=== PATIENT | female | born 1940 | race Caucasian/White ===

== ENCOUNTER 2017-05-24 13:55 | Inpatient (IN) | payer OTHER ==
[~2017-05-24] VITALS: Ht 154.9 cm; Wt 65.8 kg
[~2017-05-24 13:55] MED LIST: AMLO10TA PO; CLON1TAB PO; DULO30EC PO; FLOR250 PO; LISI30TA6 PO; LOVA40TA PO; MIRABULK PO; NITR100C7 PO; SYN.05 PO
--- NOTE | 2017-05-24 13:55 | NUR ---
1351--Patient was BIBA ALS and taken to bed 01 via gurney per EMS.
--- NOTE | 2017-05-24 13:55 | NUR ---
1351--RT at bedside with Bipap. Dr. Stafford at bedside to evaluate patient.
[2017-05-24] MEDS ORDERED: NACL 0.9% 500 ML IV SCH (13:56)
[2017-05-24 13:58] VITALS: BP 84/51
[2017-05-24] MEDS ORDERED: ALBUTEROL 0.083% 2.5 MG/3 ML NEBU INH ONE (14:00)
[2017-05-24] MEDS ORDERED: methylPREDNISolone SS 125 MG/2 ML VIAL IVP ONE (14:00)
[2017-05-24] MEDS ORDERED: IPRATROPIUM 0.02% 0.5 MG/2.5 ML NEBU INH ONE (14:00)
--- NOTE | 2017-05-24 14:01 | NUR ---
PATIENT PRESENTS TO ED WITH 77 YO FEMALE BIB EMS FROM HOME FOR ACUTE ONSET OF SOB, AWAKE AND ALERT ON ARRIVAL. DENIES N/V/D; SKIN IS PINK/WARM/DRY; AAOX4 ; LUNGS BL RHONCHI; HR EVEN AND REGULAR; PT DENIES ANY FEVER, CP OR COUGH AT THIS TIME; PATIENT STATES PAIN OF 0/10 AT THIS TIME; VSS; PATIENT POSITIONED FOR COMFORT; HOB ELEVATED; BEDRAILS UP X2; BED DOWN. ER MD MADE AWARE OF PT STATUS.
--- NOTE | 2017-05-24 14:09 | NUR ---
LAB at bedside.
--- NOTE | 2017-05-24 14:22 | NUR ---
XRAY at bedside.
[2017-05-24 14:29] LABS: HEMATOCRIT 50.4 % (36-48); MEAN CORPUSCULAR HEMOGLOBIN 31 pg (27-31); MEAN CORPUSCULAR HGB CONC 32 g/dL (33-37); MEAN CORPUSCULAR VOLUME 97 fL (80-94); PLATELET COUNT (AUTO) 343 K/uL (140-450); RED BLOOD CELL COUNT(AUTO) 5.18 MIL/uL (4.20-5.40); RED CELL DISTRIBUTION WIDTH 14.8 % (11.6-13.7); WHITE BLOOD COUNT (AUTO) 12.5 K/uL (4.8-10.8)
[2017-05-24 14:52] LABS: PROTHROMBIN TIME 11.3 secs (10.8-13.4)
[2017-05-24 14:53] LABS: LYMPHOCYTES % (MANUAL) 40 % (20-46); MONOCYTES % (MANUAL) 3 % (5-12)
[2017-05-24 14:56] LABS: ALBUMIN 3.4 g/dL (3.4-5.0); ANION GAP 20.5 (8-16); ASPARTATE AMINOTRANSFERASE 40 U/L (15-37); CARBON DIOXIDE 20.4 mmol/L (21-32); CHLORIDE 100 mmol/L (98-107); CREATININE 1.4 mg/dL (0.6-1.3); GLUCOSE 218 mg/dL (74-106); SODIUM SERUM 138 mmol/L (136-145); TOTAL BILIRUBIN 0.8 mg/dL (0.0-1.0); UREA NITROGEN, BLOOD 13 mg/dL (7-18)
[2017-05-24 14:57] LABS: POTASSIUM 2.9 mmol/L (3.5-5.1)
[2017-05-24] MEDS ORDERED: MAG SULF 2000 MG/WATER PREMIX 50 ML IV ONE (15:05)
[2017-05-24] MEDS ORDERED: NACL 0.9% 250 ML IV ONE (15:05)
[2017-05-24] MEDS ORDERED: NACL 0.9% 1,000 ML IV ONE (15:05)
[2017-05-24] MEDS ORDERED: KCL 20 MEQ/WATER INJ PREMIX 100 ML IV ONE (15:05)
[2017-05-24] MEDS: NACL 0.9% 1,000 ML IV SCH (15:24)
[2017-05-24] MEDS ORDERED: HYDROcodone/APAP 7.5/325 MG 1 TAB PO PRN (15:25)
[2017-05-24] MEDS ORDERED: ONDANSETRON 4 MG/2 ML VIAL IVP PRN (15:25)
[2017-05-24] MEDS ORDERED: ALBUTEROL SULFATE/IPRATROPIU 3 ML SOL IH PRN (15:30)
[2017-05-24 15:50] LABS: APPEARANCE,URINE CLEAR (CLEAR); BILIRUBIN,URINE NEGATIVE (NEGATIVE); BLOOD, URINE NEGATIVE (NEGATIVE); COLOR,URINE YELLOW (YELLOW); LEUKOCYTE ESTERASE ,URINE NEGATIVE (NEGATIVE); NITRITE, URINE NEGATIVE (NEGATIVE); UGLUCOSE NEGATIVE (NEGATIVE)
[2017-05-24 16:01] LABS: BARBITURATE, URINE NEG. ng/ml (NEG <=200); BENZODIAZEPINE, URINE POS. ng/mL (NEG <=200); CANNABINOID, URINE NEG. ng/mL (NEG <=50); COCAINE, URINE NEG. ng/mL (NEG <=300); OPIATE, URINE POS. ng/mL (NEG <=2000); PHENCYCLIDINE SCREEN,URINE NEG. ng/mL (NEG <=25)
--- NOTE | 2017-05-24 16:30 | NUR ---
2GM/50ML MAGNESIUM PREMIX NOT STARTED GIVEN TO REGULO MORA DUE TO PT ADMITTED WITH ONE IV LINE 20G LT AC WITH POTASSIUM RUNNING
--- NOTE | 2017-05-24 16:30 | NUR ---
Patient will be admitted to care of DR BUENROSTRO. Admited to ICU. Will go to room ICU8. Belongings list completed. Report to REGULO MORA.
[2017-05-24 16:35] LABS: CHOL/HDL RATIO 1.9 (1-4.5); FREE T4 (FREE THYROXINE) 0.77 ng/dL (0.76-1.46); MAGNESIUM 2.5 mg/dL (1.8-2.4); PHOSPHORUS 5.5 mg/dL (2.5-4.9); THYROID STIMULATING HORMONE 3.56 uIU/mL (0.34-3.74)
--- NOTE | 2017-05-24 16:40 | NUR ---
RECEIVED FROM ER VIA [facility], [place]. PT A/O X4. SINUS TACHY. SKIN DRY AND WARM TO TOUCH. SKIN INTACT. PT ON BIPAP 03/24. TOLERATING WELL. NO SOB NOTED. LUNGS SOUND DIMINISHED. LEFT AC 20 G, PATENT AND INTACT. ABDOMEN SOFT AND NON-TENDER TO TOUCH, TOLERABLE. RETAIL MARKETING COORDINATOR PUMP ON THE RIGHT LOWER QUADRANT. GANNON'S CATH IN PLACE DRAINING CLEAR YELLOW URINE IN BAG. DENIES PAIN AT THIS TIME. WILL CONTINUE TO MONITOR.
--- NOTE | 2017-05-24 16:55 | NUR ---
PT IS ON O2 5 LPM/NC. TOLERATING WELL. O2 SAT 96%, RR 16.
[2017-05-24 18:00] VITALS: BP 171/120
[2017-05-24] MEDS: ALBUTEROL SULFATE/IPRATROPIU 3 ML SOL IH SCH (18:28)
--- NOTE | 2017-05-24 18:38 | NUR ---
BIPAP STBY PT ON N/C 4LPM SAO2 96% RR 18, HR 118, BS CLEAR AND DECREASES AT BASES
[2017-05-24] MEDS ORDERED: CALCIUM ACETATE 667 MG TAB PO SCH (18:47)
--- NOTE | 2017-05-24 19:15 | NUR ---
RESIDENT PHYSICIAN DR. WARE MADE AWARE OF HIGH BP OF 168/123 AND HIGH MAGNESIUM OF 2.5. ORDER RECEIVED TO DISCONTINUE MAG SULFATE. WILL FOLLOW UP WITH NEW ORDERS FOR INCREASED BP.
--- NOTE | 2017-05-24 19:20 | NUR ---
REPORT RECEIVED FROM MORNING NURSE, REGULO LARES. PT IS A&OX4. BILATERAL LUNG SOUNDS CLEAR. S1 AND S2 HEARD WITHOUT ANY ABNORMAL FINDINGS. BOWEL SOUNDS HEARD FROM ALL [address] ON MONITOR. BP NOTED 168/123. DR. WARE MADE AWARE AND AT BED SIDE AT THIS TIME. O2 VIA NC @4L/MIN. GENERALIZED WEAKNESS NOTED BUT ABLE TO MOVE ALL EXTREMITIES. IMPLANTED PAIN PUMP PALPATED TO RIGHT LOWER ABDOMEN. PEDAL PULSE PRESENT. GANNON DRAINING LIGHT KADEN COLOR URINE VIA GRAVITY. DENIES ANY PAIN OR DISCOMFORT AT THIS TIME. CALL LIGHT IN REACH AND BED KEPT TO THE LOWEST. BILATERAL S/R UP WITH PADS. WILL CONTINUE TO MONITOR.
[2017-05-24] MEDS ORDERED: LABETALOL 100 MG/20 ML VIAL IV SCH (19:30)
--- NOTE | 2017-05-24 19:32 | NUR ---
REPORT GIVEN TO NIGHT NURSEKALYAN FOR CONTINUITY OF CARE. PT IS STABLE.
[2017-05-24] MEDS ORDERED: LISINOPRIL 20 MG TAB PO SCH (19:40)
[2017-05-24 20:00] VITALS: BP 156/124
[2017-05-24] MEDS: LISINOPRIL 10 MG TAB PO SCH (20:02)
[2017-05-24] MEDS: clonazePAM 0.5 MG TAB PO SCH (20:08)
[2017-05-24] MEDS: LEVOFLOXACIN 750 MG/D5W PREMIX 150 ML IV SCH (20:14)
--- NOTE | 2017-05-24 20:48 | NUR ---
SPUTUM CUP LEFT AT BEDSIDE, PT AWAKE AND ALERT AND STATED SHE DOES NOT HAVE A COUGH OR PHLEGM TO PRODUCE
--- NOTE | 2017-05-24 20:50 | NUR ---
PT BP 64/39. JP=724. 95%. ON LEVOPHED 3 MCG/MIN. TITRATED TO 5 MCG/MIN. WILL CONTINUE TO MONITOR. Addendum: 05/24/17 at 2140 by Charlene Stout RN CHARTED ON WRONG PATIENT. DELETE THIS CHARTING.
--- NOTE | 2017-05-24 20:57 | NUR ---
BP 108/58. OR=615. 97%. WILL CONTINUE WITH LEVOPHED 5 MCG/MIN. NOTED INCREASED CRACKLES AND SUCTIONED 10ML OF TUBE FEEDING CONTENT FROM THE MOUTH. STOPPED FEEDING IMMEDIATELY. 5ML RESIDUAL NOTED. NOTIFIED. DR. WARE ABOUT PT'S CONDITION AND ORDERED TO CONTINUE TO HOLD THE TUBE FEEDING FOR NOW AND CONTINUE WITH AMIODORONE DRIP AND LEVOPHED DRIP. Addendum: 05/24/17 at 2140 by Charlene Stout RN CHARTED ON WRONG PATIENT. DELETE THIS CHARTING.
[2017-05-24] MEDS: DOCUSATE SODIUM 100 MG GELCAP PO SCH (21:28)
[2017-05-24] MEDS ORDERED: CLINDAMYCIN 600 MG/4 ML VIAL ONE (21:35)
--- NOTE | 2017-05-24 21:37 | NUR ---
SERVICE DESK DIRECTOR AT BED SIDE AT THIS TIME.
--- NOTE | 2017-05-24 21:44 | NUR ---
PT REFUSED ULTRASOUND TO ABD AND LOWER LEGS X3. BENEFITS AND RISKS EXPLAINED. NOTIFIED DR. WARE AND ORDERED TO TRY AGAIN IN AM. NOTED AND WILL CARRY OUT. PT MADE AWARE.
--- NOTE | 2017-05-24 21:47 | NUR ---
NO MORE D5 SOLUTION IN THE HOSPITAL AT THIS TIME DUE TO SHORTAGE. CALLED AND SPOKE TO PAINTINGS CONSERVATOR PHARMACIST, IVETTE AND SHE SAID IT IS OK TO MIX IT WITH NS. DR. PIERRE MADE AWARE.
[2017-05-24] MEDS: CLINDAMYCIN 600 MG in DEXTROSE 5% 50 ML IV SCH (21:52)
[2017-05-24 22:00] VITALS: BP 130/94
[2017-05-24 23:55] LABS: ANION GAP 11.8 (8-16); CARBON DIOXIDE 23.1 mmol/L (21-32); CHLORIDE 106 mmol/L (98-107); CREATININE 1.2 mg/dL (0.6-1.3); GLUCOSE 195 mg/dL (74-106); POTASSIUM 3.9 mmol/L (3.5-5.1); SODIUM SERUM 137 mmol/L (136-145); UREA NITROGEN, BLOOD 16 mg/dL (7-18)
[2017-05-25] VITALS (12 sets, daily range): BP systolic 111–163; BP diastolic 58–107
--- NOTE | 2017-05-25 01:15 | NUR ---
PT WAS ASSISTED WITH BED BLACK FOR BM AND HAD MODERATE AMOUNT OF SOFT BM. ASSISTED WITH HYGIENE AND TOLERATED WELL.
[2017-05-25] MEDS: NACL 0.9% 1,000 ML IV SCH ×2 (01:24→06:54)
[2017-05-25] MEDS: ACETAMINOPHEN 325 MG TAB PO PRN (01:57)
[2017-05-25] MEDS ORDERED: CLINDAMYCIN 600 MG/4 ML VIAL ONE (02:25)
--- NOTE | 2017-05-25 03:00 | NUR ---
ASSISTED WITH BED BLACK AND HAD SMALL AMOUNT OF SOFT BM. ASSISTED WITH HYGIENE. TOLERATED WELL.
[2017-05-25] MEDS: CLINDAMYCIN 600 MG in DEXTROSE 5% 50 ML IV SCH ×3 (04:19→21:50)
--- NOTE | 2017-05-25 04:25 | NUR ---
PT HAD MODERATE AMOUNT OF SOFT BM. ASSISTED WITH HYGIENE. TOLERATED WELL.
[2017-05-25 05:28] LABS: HEMOGLOBIN 13.1 g/dL (12.0-16.0); MEAN CORPUSCULAR HEMOGLOBIN 31 pg (27-31); MEAN CORPUSCULAR HGB CONC 32 g/dL (33-37); MEAN CORPUSCULAR VOLUME 98 fL (80-94); PLATELET COUNT (AUTO) 232 K/uL (140-450); RED BLOOD CELL COUNT(AUTO) 4.19 MIL/uL (4.20-5.40)
[2017-05-25 05:53] LABS: ANION GAP 15.4 (8-16); CARBON DIOXIDE 22.1 mmol/L (21-32); CHLORIDE 106 mmol/L (98-107); CREATININE 1.3 mg/dL (0.6-1.3); GLUCOSE 186 mg/dL (74-106); POTASSIUM 4.5 mmol/L (3.5-5.1); SODIUM SERUM 139 mmol/L (136-145); UREA NITROGEN, BLOOD 19 mg/dL (7-18)
[2017-05-25 05:58] LABS: MAGNESIUM 1.7 mg/dL (1.8-2.4); PHOSPHORUS 4.5 mg/dL (2.5-4.9)
[2017-05-25] MEDS: LEVOTHYROXINE 0.05 MG TAB PO SCH (06:53)
[2017-05-25 06:57] LABS: LYMPHOCYTES % (MANUAL) 4 % (20-46); MONOCYTES % (MANUAL) 4 % (5-12)
[2017-05-25] MEDS ORDERED: hePARIN / DEXT 5% PREMIX 250 ML IV SCH ×2 (07:15→07:30)
[2017-05-25] MEDS ORDERED: HEPARIN PER PHARMACY MC PRN (07:15)
[2017-05-25] MEDS: ALBUTEROL SULFATE/IPRATROPIU 3 ML SOL IH SCH ×3 (07:16→20:00)
--- NOTE | 2017-05-25 07:17 | NUR ---
REPORT GIVEN TO MORNING NURSEABDULAZIZ FOR CONTINUITY OF CARE. VS STABLE AT THIS TIME. ALL SAFETY PRECAUTIONS ARE IN PLACE.
--- NOTE | 2017-05-25 07:20 | NUR ---
RECEIVED REPORT FROM NOC SHIFT RN. PT LYING IN BED AWAKE. SR ON MONITOR. NO SOB, NO ACUTE DISTRESS NOTED. PT ON NC AT 4 LTR/MIN. SKIN DRY AND WARM TO TOUCH. PUPILS REACTIVE. LEFT AC 20 G INTACT. SKIN INTACT. LUNGS SOUND DIMINISHED ON AUSCULTATION. ABDOMEN SOFT AND NON-TENDER. BOWEL SOUND PRESENT. GANNON'S CATH IN PLACE DRAINING YELLOW URINE. SCDS ON BLE. WILL CONTINUE TO MONITOR.
--- NOTE | 2017-05-25 07:25 | NUR ---
BP WAS 180/118. DR LARIOS MADE AWARE. WILL FOLLOW UP ON ORDER.
[2017-05-25] MEDS ORDERED: MAG SULF 2000 MG/WATER PREMIX 50 ML IV SCH (07:30)
--- NOTE | 2017-05-25 07:31 | NUR ---
BP 163/96 MM OF HG. PT ON CONTINUOUS MONITORING
--- NOTE | 2017-05-25 07:45 | NUR ---
DR. CHESTER AND RESIDENT GROUP IN TO SEE PT. WILL FOLLOW UP ON ORDER.
[2017-05-25] MEDS ORDERED: ENALAPRILAT 2.5 MG/2 ML VIAL IVP PRN (07:55)
[2017-05-25] MEDS ORDERED: NITROGLYCERIN 0.4 MG TAB SL PRN (07:55)
[2017-05-25] MEDS: CALCIUM ACETATE 667 MG TAB PO SCH (08:36)
[2017-05-25] MEDS: DOCUSATE SODIUM 100 MG GELCAP PO SCH ×2 (08:36→21:46)
[2017-05-25] MEDS: LACTOBACILLUS RHAMNOSUS GG 1 EACH CAP PO SCH ×3 (08:36→17:11)
[2017-05-25] MEDS: DULoxetine 30 MG CAPDR PO SCH (08:37)
[2017-05-25] MEDS: clonazePAM 0.5 MG TAB PO SCH ×4 (08:38→21:47)
[2017-05-25] MEDS: amLODIPine 5 MG TAB PO SCH (08:40)
--- NOTE | 2017-05-25 08:40 | NUR ---
PATIENT HAS BEEN SCREENED AND CATEGORIZED HIGH NUTRITION RISK. PATIENT WILL BE SEEN WITHIN 1-2 DAYS OF ADMISSION. 05/25/17-05/26/[address]
[2017-05-25] MEDS: ATORVASTATIN 20 MG TAB PO SCH (08:44)
--- NOTE | 2017-05-25 09:42 | NUR ---
BP 164/82. O2 SAT 95% HR 98. AT BEDSIDE. NO S/S RESPIRATORY DISTRESS NOTED. WILL CONTINUE TO MONITOR.
[2017-05-25] MEDS ORDERED: DEXTROSE 50% 50 ML SYR IVP PRN (11:10)
[2017-05-25] MEDS: BLOOD GLUCOSE MONITORING 1 DEV DEV FS SCH ×3 (11:30→21:45)
[2017-05-25 11:36] LABS: PROTHROMBIN TIME 11.3 secs (10.8-13.4)
--- NOTE | 2017-05-25 12:35 | NUR ---
PT HAD MODERATE AMOUNT OF SOFT BROWNISH BM, CLEANED PT, LINEN CHANGED, PT'S AT BEDSIDE.
--- NOTE | 2017-05-25 15:07 | NUR ---
PT LEFT ICU AT [address], BACK TO ICU AT 1507 . NO S/S OF RESPIRATORY DISTRESS NOTED, SAFETY MAINTAINED.
--- NOTE | 2017-05-25 15:30 | NUR ---
PT HAD SMALL AMOUNT OF SOFT BM, CLEANED PT. PT'S SISTER PRESENT AT BEDSIDE.
--- NOTE | 2017-05-25 16:00 | NUR ---
FEED PT JELLO ONE CUP, PT TOLERATED WELL.
--- NOTE | 2017-05-25 18:00 | NUR ---
PT HAD MODERATE AMOUNT OF SOFT BROWNISH BM, CLEANED PT, PT'S AT BEDSIDE.
--- NOTE | 2017-05-25 19:20 | NUR ---
RECEIVED A REPORT FROM MORNING NURSE, REGULO HORVATH. PT IS ALERT AND VERBAL. ABLE TO FOLLOW COMMANDS. BILATERAL LUNGS SOUND DIMINISHED. S1 AND S2 HEARD WITHOUT ABNORMAL HEART SOUND. ON 4L O2 VIA NC. IV SITES TO LEFT AC AND RIGHT WRIST PATENT AND ASYMPTOMATIC. BILATERAL SCD IN PLACE. ACTIVE BOWEL SOUNDS HEARD FROM ALL QUAD. ABD SOFT AND NOT DISTENDED. IMPLANTED PAIN PUMP PALPATED ON THE RIGHT LOWER ABD. DENIES ANY PAIN OR DISCOMFORT. ON CONTINUOUS CARDIAC MONITORING. CALL LIGHT IN REACH. BED KEPT TO THE LOWEST POSITION. HOB ELEVATED TO 30 DEGREES. WILL CONTINUE TO MONITOR.
--- NOTE | 2017-05-25 19:30 | NUR ---
REPORT GIVEN TO NOC SHIFT RN FOR CONTINUITY OF CARE. PT SLEEPING IN BED, NO CHANGE IN LOC.
--- NOTE | 2017-05-25 20:10 | NUR ---
1999 unable to scan duomed medication pressed administered on emar.gave hhntx treatment with duomed
--- NOTE | 2017-05-25 20:15 | NUR ---
PT ON 4LNC SATTING 88%. REPLACED NC WITH OXYMIZER AT 6L. SATS 95%
[2017-05-25] MEDS: methylPREDNISolone SS 40 MG/ML VIAL IVP SCH (21:45)
[2017-05-25] MEDS: LISINOPRIL 10 MG TAB PO SCH (21:46)
[2017-05-25] MEDS: FAMOTIDINE 20 MG TAB PO SCH (21:48)
--- NOTE | 2017-05-25 22:46 | NUR ---
NOTIFIED DR. WARE ABOUT PT'S HR BEING 110'S - 120'S AND ONE TIME 134 SINCE START OF THE SHIFT. PT DENIES ANY PAIN OR DISCOMFORT. WILL FOLLOW UP WITH ANY ORDERS.
[2017-05-26] VITALS (12 sets, daily range): BP systolic 121–159; BP diastolic 77–97
--- NOTE | 2017-05-26 01:26 | NUR ---
PT ASLEEP AT THIS TIME. CONTINUE TO MONITOR UNDER CONTINUOUS POWER OPERATOR. ALL SAFETY PRECAUTIONS ARE IN PLACE. WILL CONTINUE TO MONITOR.
[2017-05-26] MEDS: NACL 0.9% 1,000 ML IV SCH ×2 (01:29→16:06)
--- NOTE | 2017-05-26 03:34 | NUR ---
PT ASLEEP. CONTINUES TO BE MONITORED WITH CONTINUOUS CARDIAC MONITORING. NO ACUTE DISTRESS NOTED. NO S/SX OF PAIN OF DISCOMFORT. ALL SAFETY PRECAUTIONS ARE IN PLACE. WILL CONTINUE TO MONITOR.
[2017-05-26] MEDS: CLINDAMYCIN 600 MG in DEXTROSE 5% 50 ML IV SCH ×3 (04:42→21:15)
[2017-05-26] MEDS: methylPREDNISolone SS 40 MG/ML VIAL IVP SCH ×3 (05:00→21:15)
--- NOTE | 2017-05-26 05:03 | NUR ---
CLINICAL OUTCOMES MANAGER AT BED SIDE AT THIS TIME.
[2017-05-26 05:22] LABS: HEMATOCRIT 37.2 % (36-48); HEMOGLOBIN 12.2 g/dL (12.0-16.0); MEAN CORPUSCULAR HEMOGLOBIN 32 pg (27-31); MEAN CORPUSCULAR HGB CONC 33 g/dL (33-37); MEAN CORPUSCULAR VOLUME 97 fL (80-94); PLATELET COUNT (AUTO) 198 K/uL (140-450); RED BLOOD CELL COUNT(AUTO) 3.84 MIL/uL (4.20-5.40); RED CELL DISTRIBUTION WIDTH 14.2 % (11.6-13.7)
--- NOTE | 2017-05-26 05:55 | NUR ---
DR. LARIOS AT BED SIDE. UPDATED PT'S CONDITION. WILL FOLLOW UP WITH ANY ORDERS.
[2017-05-26 06:14] LABS: ANION GAP 12.8 (8-16); CARBON DIOXIDE 24.4 mmol/L (21-32); CHLORIDE 103 mmol/L (98-107); CREATININE 0.9 mg/dL (0.6-1.3); GLUCOSE 149 mg/dL (74-106); POTASSIUM 3.2 mmol/L (3.5-5.1); SODIUM SERUM 137 mmol/L (136-145); UREA NITROGEN, BLOOD 16 mg/dL (7-18)
[2017-05-26 06:27] LABS: MAGNESIUM 1.9 mg/dL (1.8-2.4); PHOSPHORUS 3.7 mg/dL (2.5-4.9)
[2017-05-26 06:29] LABS: LYMPHOCYTES % (MANUAL) 3 % (20-46); MONOCYTES % (MANUAL) 2 % (5-12)
[2017-05-26] MEDS: LEVOTHYROXINE 0.05 MG TAB PO SCH (06:36)
[2017-05-26] MEDS: BLOOD GLUCOSE MONITORING 1 DEV DEV FS SCH ×4 (06:38→21:15)
[2017-05-26] MEDS: ALBUTEROL SULFATE/IPRATROPIU 3 ML SOL IH SCH ×3 (06:50→18:54)
--- NOTE | 2017-05-26 07:11 | NUR ---
REPORT GIVEN TO MORNING NURSENISA RN FOR CONTINUITY OF CARE. VS STABLE AT THIS TIME. ALL SAFETY PRECAUTIONS ARE IN PLACE.
[2017-05-26] MEDS ORDERED: POTASSIUM CHLORIDE 40 MEQ, LIDOCAINE 1% 25 MG in NACL 0.9% 250 ML IV SCH (07:29)
--- NOTE | 2017-05-26 07:30 | NUR ---
RECEIVED PATIENT ON BED.INITIAL ASSESSMENT DONE TO PATIENT .PT ON 6 LITERS OXYMIZER .LEFT AC 20 GAUGE PIV WITH 0.9 NS AT 70 ML/H.PT DENIES PAIN.RIGHT FOREARM SALINE LOCK PATENT AND INTACT.NO SIGNS OF INFILTRATION.ST ON THE MONITOR.WILL MONITOR.
[2017-05-26] MEDS: ATORVASTATIN 20 MG TAB PO SCH (08:43)
[2017-05-26] MEDS: DOCUSATE SODIUM 100 MG GELCAP PO SCH ×2 (08:43→21:15)
[2017-05-26] MEDS: clonazePAM 0.5 MG TAB PO SCH ×4 (08:44→21:12)
[2017-05-26] MEDS: DULoxetine 30 MG CAPDR PO SCH (08:44)
[2017-05-26] MEDS: CALCIUM ACETATE 667 MG TAB PO SCH (08:45)
[2017-05-26] MEDS: FAMOTIDINE 20 MG TAB PO SCH ×2 (08:45→21:15)
[2017-05-26] MEDS: amLODIPine 5 MG TAB PO SCH (08:45)
[2017-05-26] MEDS: LACTOBACILLUS RHAMNOSUS GG 1 EACH CAP PO SCH ×3 (08:54→17:35)
--- NOTE | 2017-05-26 09:45 | NUR ---
HOSPITAL SHUT DOWN O2 X 5MINUTES PT PLACED ON 02 VIA E CYLINDER AND THEN PLACED BACK ON HOSPITAL 02 NO ILL EFFECTS NOTED
[2017-05-26] MEDS: INSULIN LISPRO SLIDING SCALE 100 UNITS/ML VIAL SUBQ PRN ×2 (12:32→21:14)
--- NOTE | 2017-05-26 12:56 | NUR ---
05/26/17 RD INITIAL ASSESSMENT COMPLETED PLEASE REFER TO NUTRITION ASSESSMENT UNDER CARE ACTIVITY FOR ESTIMATED NUTRITIONAL NEEDS. 1. CONTINUE SOFT DIET TOLERATED PER MD 2. ENCOURAGE INCREASED PO INTAKES -PT WITH POOR PO INTAKE (ONLY MEETING 20% OF ESTIMATED NEEDS) 3. RECOMMEND BOOST TID TO AID IN INCREASED KCAL AND PROTEIN CONSUMPTION 4. RD TO FOLLOW-UP 3-5 DAYS, MODERATE RISK IMELDA CROCKETT, RD
--- NOTE | 2017-05-26 15:48 | NUR ---
AT THE BEDSIDE.PT IS NOT IN ANY CARDIORESPIRATORY DISTRESS.PT IS TOLERATING VENT AND GTUBE FEEDING.
--- NOTE | 2017-05-26 19:20 | NUR ---
REPORT GIVEN TO AMANDA MARTIN FOR CONTINUITY OF CARE
--- NOTE | 2017-05-26 19:21 | NUR ---
RECEIVED REPORT FROM REGULO WRIGHT. AT BEDSIDE, PT AOX1, CONFUSED, ABLE TO FOLLOW COMMANDS SOMETIMES, NO S/S OF DISTRESS, DISMINISHED LUNG SOUNDS, ON OXIMIZER WITH O2 AT 6L/MIN, DENIES CHEST PAIN, ST ON AUTO BODY SERVICE MECHANIC. SOFT ABDOMEN WITH HYPOACTIVE BOWEL SOUNDS, PERIPHERAL LINE TO LEFT AC, PATENT AND SL, TO RIGHT FOREARM 22GA, RUNNING NS AT 70 ML/HR, F/C IN PLACE DRAINING CLEAR YELLOW URINE VIA GRAVITY. ABLE TO MOVE ALL EXTREMITIES, AFEBRILE, SKIN IS INTACT, WARM AND DRY TO TOUCH. VSS, DENIES PAIN, SCD'S ON BLE. HOB ELEVATED 30 DEGREES, SAFETY MEASURES MAINTAINED, WILL CONTINUE TO MONITOR.
[2017-05-26] MEDS: LEVOFLOXACIN 750 MG/D5W PREMIX 150 ML IV SCH (19:33)
--- NOTE | 2017-05-26 20:15 | NUR ---
PT IS CONFUSED, TRYING TO GET UP FROM BED, PULLED OUT THE IV SITE TO LEFT AC, SMALL AMOUNT OF BLEEDING NOTED, REORIENTATED PT, PT CALM DOWN, WILL CONTINUE TO MONITOR.
--- NOTE | 2017-05-26 20:40 | NUR ---
PT IS SCREAMING, AGITATED, CALLED PT'S , CAME IN AND PT CALM DOWN.
[2017-05-26] MEDS: LISINOPRIL 10 MG TAB PO SCH (21:14)
--- NOTE | 2017-05-26 22:00 | NUR ---
NO S/S OF DISTRESS, VSS, POSITION CHANGED FOR OFF LOAD PRESSURE.
[2017-05-27] VITALS (8 sets, daily range): BP systolic 97–157; BP diastolic 57–95
--- NOTE | 2017-05-27 | NUR ---
PT IS RESTING IN BED, NO CHANGE OF CONDITION AT THIS TIME, VSS, POSITION CHANGED FOR OFF LOAD PRESSURE.
--- NOTE | 2017-05-27 02:00 | NUR ---
PT IS AWAKE, STATED COULD NOT SLEEP, REQUESTS SLEEPING PILL, DR. WARE MADE AWARE.
[2017-05-27] MEDS ORDERED: clonazePAM 0.5 MG TAB PO PRN (02:55)
--- NOTE | 2017-05-27 04:00 | NUR ---
AM CARE PROVIDED, GANNON CATHETER CARE PROVIDE, POSITION CHANGED FOR OFF LOAD PRESSURE. VSS
[2017-05-27] MEDS: CLINDAMYCIN 600 MG in DEXTROSE 5% 50 ML IV SCH ×3 (04:55→20:33)
[2017-05-27] MEDS: methylPREDNISolone SS 40 MG/ML VIAL IVP SCH ×3 (04:55→20:44)
--- NOTE | 2017-05-27 05:20 | NUR ---
PT IS STILL AWAKE, CONFUSED, PLAYING WITH TUBES, TRYING TO GET UP FROM BED, CLONAZEPAM GIVEN EARLY, DID NOT WORK, DR. WARE MADE AWARE. REORIENTED PT, PT CALM DOWN.
[2017-05-27 05:23] LABS: HEMATOCRIT 32.2 % (36-48); HEMOGLOBIN 10.5 g/dL (12.0-16.0); MEAN CORPUSCULAR HEMOGLOBIN 31 pg (27-31); MEAN CORPUSCULAR HGB CONC 33 g/dL (33-37); MEAN CORPUSCULAR VOLUME 95 fL (80-94); PLATELET COUNT (AUTO) 205 K/uL (140-450); RED BLOOD CELL COUNT(AUTO) 3.38 MIL/uL (4.20-5.40); RED CELL DISTRIBUTION WIDTH 14.1 % (11.6-13.7); WHITE BLOOD COUNT (AUTO) 15.5 K/uL (4.8-10.8)
--- NOTE | 2017-05-27 06:00 | NUR ---
PT IS AGITATED, TRYING TO GET UP THE BED, STATED, " I NEED MY CLOTH," VERY CONFUSED, DR. LARIOS MADE AWARE. CALLED PT'S , NO RESPOND, LEFT MESSAGE.
[2017-05-27] MEDS: LEVOTHYROXINE 0.05 MG TAB PO SCH (06:25)
[2017-05-27] MEDS: NACL 0.9% 1,000 ML IV SCH ×2 (06:25→20:25)
[2017-05-27 06:36] LABS: ANION GAP 11.8 (8-16); CHLORIDE 104 mmol/L (98-107); CREATININE 0.9 mg/dL (0.6-1.3); GLUCOSE 125 mg/dL (74-106); SODIUM SERUM 138 mmol/L (136-145); UREA NITROGEN, BLOOD 19 mg/dL (7-18)
[2017-05-27] MEDS: BLOOD GLUCOSE MONITORING 1 DEV DEV FS SCH ×4 (06:46→20:41)
[2017-05-27 06:49] LABS: MAGNESIUM 1.5 mg/dL (1.8-2.4); PHOSPHORUS 2.5 mg/dL (2.5-4.9)
[2017-05-27 06:57] LABS: POTASSIUM 2.8 mmol/L (3.5-5.1)
[2017-05-27 06:59] LABS: LYMPHOCYTES % (MANUAL) 6 % (20-46)
[2017-05-27 07:00] LABS: MONOCYTES % (MANUAL) 6 % (5-12)
[2017-05-27] MEDS: ALBUTEROL SULFATE/IPRATROPIU 3 ML SOL IH SCH ×3 (07:01→19:09)
--- NOTE | 2017-05-27 07:05 | NUR ---
REPORT GIVEN TO REGULO CINTRON AT BEDSIDE FOR CONTINUE OF CARE, PT IS STILL TRYING TO GET UP THE BED.
--- NOTE | 2017-05-27 07:06 | NUR ---
RECEIVED PT ON 6L OXYMIZER, SPO2 93%. PT IS NOT SOB AND NOT IN RESPIRATORY DISTRESS AT THIS TIME. WILL CONTINUE TO MONITOR.
--- NOTE | 2017-05-27 07:15 | NUR ---
RECEIVED REPORT FROM AMANDA RAJPUT. SHE IS AWAKE AND ALERT CONFUSE , TRY TO GET OUT OF BED AND PULL OUT HER O2 . SHE HAS SOME BRUIST ON HER ARMS , SKIN IS INTACT . O2 6L/OXIMIZER O2SAT 95% IV ON RT FORARM, THE SITE IS DRY AND INTACT. ABDOMEN SOFT B/S IS ACTIVE. SMALL AMT DARK GREEN BM. GANNON CATH. DRAIN CLEAR YELLOW URINE.
[2017-05-27] MEDS ORDERED: POTASSIUM CHLORIDE 10 MEQ TABER PO SCH (07:55)
[2017-05-27] MEDS: DULoxetine 30 MG CAPDR PO SCH (08:27)
[2017-05-27] MEDS: ATORVASTATIN 20 MG TAB PO SCH (08:28)
[2017-05-27] MEDS: amLODIPine 5 MG TAB PO SCH (08:28)
[2017-05-27] MEDS: CALCIUM ACETATE 667 MG TAB PO SCH (08:28)
[2017-05-27] MEDS: LACTOBACILLUS RHAMNOSUS GG 1 EACH CAP PO SCH ×3 (08:29→16:38)
[2017-05-27] MEDS ORDERED: POTASSIUM CHLORIDE 40 MEQ, LIDOCAINE 1% 25 MG in NACL 0.9% 250 ML IV SCH (08:30)
[2017-05-27] MEDS: clonazePAM 0.5 MG TAB PO SCH ×4 (08:48→20:46)
[2017-05-27] MEDS: FAMOTIDINE 20 MG TAB PO SCH ×2 (08:49→20:48)
[2017-05-27] MEDS: DOCUSATE SODIUM 100 MG GELCAP PO SCH ×2 (08:49→20:44)
--- NOTE | 2017-05-27 09:30 | NUR ---
CALLED GIVE REPORT TO HOWARD RAJPUT.
--- NOTE | 2017-05-27 10:30 | NUR ---
TRANSFER TO 107 B IN BED AT BEDSIDE CONDITION STABLE WHEN TRANSFER.
--- NOTE | 2017-05-27 10:40 | NUR ---
RECEIVED PT FRO ICU ASSISTED BY ICU NURSE PER WHEELCHAIR. PT AWAKE. ALERT,ORIENTEDX1 WITH CONFUSION. WITH YOJANA. NO SOB NOTED. ON OXYMIZER AT 5LPM. DENIES ANY PAIN OR DISCOMFORT AT THIS TIME. NO SIGNS AND SYMPTOMS OF ACUTE DISTRESS NOTED. SAFETY PRECAUTION IN PLACE. CALL LIGHT WITHIN REACH. PT AMBULATORY WITH ASSIST PER . GANNON CATHETER IN PLACE, DRAINING CLEAR YELLOW URINE.
--- NOTE | 2017-05-27 11:30 | NUR ---
LEFT. PT BECAME VERY AGITATED AND CONFUSED WANTED TO GET OUT OF BED. TRYING TO REMOVE GANNON CATHETER AND IV LINE. REORIENTATION DONE AND NOT EFFECTIVE. DR. LARIOS MADE AWARE WITH ORDERS MADE AND CARRIED OUT.
--- NOTE | 2017-05-27 11:56 | NUR ---
PT WONT ALLOW BREATHING TX TO CONTINUE. NURSE LUIS DANIEL AWARE. PT IS VERY CONFUSED AT THIS TIME. PT NOT IN RESPIRATORY DISTRESS OR SOB.
[2017-05-27] MEDS: HALOPERIDOL IM 5 MG/ML VIAL IM PRN ×2 (12:12→17:48)
[2017-05-27 12:47] LABS: ANION GAP 10.4 (8-16); CARBON DIOXIDE 25.4 mmol/L (21-32); CHLORIDE 106 mmol/L (98-107); CREATININE 1.1 mg/dL (0.6-1.3); GLUCOSE 136 mg/dL (74-106); POTASSIUM 3.8 mmol/L (3.5-5.1); SODIUM SERUM 138 mmol/L (136-145); UREA NITROGEN, BLOOD 20 mg/dL (7-18)
--- NOTE | 2017-05-27 13:19 | NUR ---
DUE KLONOPIN NOTE GIVEN DUE TO PT FELL ASLEEP. NO SIGNS AND SYMPTOMS OF ACUTE DISTRESS OR DISCOMFORT NOTED. MAINTAINED ON 5LPM OXYMIZER. Addendum: 05/27/17 at 1716 by Rebecca Perez RN DUE KLONOPIN NOT GIVEN DUE TO PT FELL ASLEEP. NO SIGNS AND SYMPTOMS OF ACUTE DISTRESS OR DISCOMFORT NOTED. MAINTAINED ON 5LPM OXYMIZER.
--- NOTE | 2017-05-27 17:00 | NUR ---
DUE MEDS GIVEN TAKEN P.O. TOLERATED WELL. AT BEDSIDE. PT AWAKE, ALERT, WITH CONFUSION. REORIENTATION DONE NEEDED.
--- NOTE | 2017-05-27 17:50 | NUR ---
PT'S WENT HOME. PT STARTED TO GET AGITATED. TRYING TO REMOVE IV LINE AND OXYGEN. REORIENTATION DONE BUT NOT EFFECTIVE. WRAPPED IV LINE WITH KERLIX, SECURED WITH TAPE. MEDICATED PRN HALDOL PRN IM.
--- NOTE | 2017-05-27 18:22 | NUR ---
PT KEPT CLEAN, DRY AND COMFORTABLE, NEEDS ATTENDED. BED ALARM ON. WILL ENDORSE TO NEXT SHIFT. PT ON STABLE CONDITION. FOR CONTINUITY OF CARE.
--- NOTE | 2017-05-27 18:43 | NUR ---
PT STARTING TO FALL ASLEEP. PT COOPERATIVE. REORIENTATION EFFECTIVE.
--- NOTE | 2017-05-27 19:15 | NUR ---
RECEIVED REPORT FROM AM NURSE. PT RESTING IN BED, AOX2, BEDREST, ABLE TO VERBALIZE NEEDS. PT DENIES PAIN, SOB OR S/S OF ACUTE DISTRESS. PT CONFUSED AND FORGETFUL AT TIMES, PT REORIENTED, WILL CONTINUE WITH CONSTANT REINFORCEMENT. CAMPUS RECRUITING INTERN IN PLACE. SPO2 91% ON O2 5L OXYMIZER, RR 18 EVEN AND UNLABORED, HR 116. PT SEEN REMOVING O2 OXYMIZER, ASSISTED PT TO PUT BACK ON, PT EDUCATED, WILL MONITOR PT COMPLIANCE. IV ACCESS ASYMPTOMATIC, PATENT AND INTACT. IVF INFUSING WELL. DISCUSSED AND REVIEWED PLAN OF CARE WITH PT, WILL REINFORCE THROUGHOUT SHIFT. ALL NEEDS MET. BED ALARM AND SAFETY MEASURES ENSURED. CALL LIGHT WITHIN REACH. WILL CONTINUE TO MONITOR.
[2017-05-27] MEDS: LISINOPRIL 10 MG TAB PO SCH (20:47)
--- NOTE | 2017-05-27 20:55 | NUR ---
PT TRYING TO GET OUT OF BED, PT REORIENTED, WILL CONTINUE WITH CONSTANT REINFORCEMENT. PT ASSISTED BACK TO BED, ADMINISTERED DUE MEDS WITH EDUCATION. PT STATED "OK", ABLE TO SWALLOW MEDS WELL. ASSISTED PT TO TURN AND REPOSITION SELF, OFFLOADED PRESSURE AREAS. PT TOLERATED WELL. ALL NEEDS MET. SAFETY MEASURES ENSURED. CALL LIGHT WITHIN REACH. WILL CONTINUE TO MONITOR.
[2017-05-28] VITALS: BP 118/78
--- NOTE | 2017-05-28 00:01 | NUR ---
PT SLEEPING COMFORTABLY, AROUSABLE TO NAME, NO S/S OF ACUTE DISTRESS. PT SEEN REMOVING O2 OXYMIZER, ASSISTED PT TO PUT BACK ON, SPO2 95% ON O2 5L OXYMIZER, PT EDUCATED, WILL MONITOR PT COMPLIANCE. ASSISTED PT TO TURN AND REPOSITION SELF, PT TOLERATED WELL. ALL NEEDS MET. IVF INFUSING WELL. BED ALARM AND SAFETY MEASURES ENSURED. CALL LIGHT WITHIN REACH. WILL CONTINUE TO MONITOR.
[2017-05-28 04:00] VITALS: BP 121/79
[2017-05-28] MEDS: methylPREDNISolone SS 40 MG/ML VIAL IVP SCH ×3 (04:00→21:24)
[2017-05-28] MEDS: CLINDAMYCIN 600 MG in DEXTROSE 5% 50 ML IV SCH ×3 (04:00→22:30)
--- NOTE | 2017-05-28 04:05 | NUR ---
PT SLEEPING COMFORTABLY, AROUSABLE TO NAME, NO S/S OF ACUTE DISTRESS. SPO2 96% ON O2 5L OXYMIZER, RR 16 EVEN AND UNLABORED. ASSISTED PT TO TURN AND REPOSITION SELF, PT TOLERATED WELL. ADMINISTERED DUE MEDS WITH EDUCATION. PT STATED "OK." ALL NEEDS MET. IVPB INFUSING WELL. BED ALARM AND SAFETY MEASURES ENSURED. CALL LIGHT WITHIN REACH. WILL CONTINUE TO MONITOR.
[2017-05-28] MEDS: LEVOTHYROXINE 0.05 MG TAB PO SCH (05:56)
[2017-05-28] MEDS: BLOOD GLUCOSE MONITORING 1 DEV DEV FS SCH ×4 (06:02→21:33)
--- NOTE | 2017-05-28 06:05 | NUR ---
PT SLEEPING COMFORTABLY, AROUSABLE TO NAME, ADMINISTERED DUE MED SYNTHROID WITH EDUCATION. PT STATED "OK," ABLE TO SWALLOW MED WELL. ALL NEEDS MET. IVF INFUSING WELL. SAFETY MEASURES ENSURED. CALL LIGHT WITHIN REACH. WILL CONTINUE TO MONITOR. BLOOD GLUCOSE 122, NO INSULIN COVERAGE NEEDED. TRAILER CHIEF AT BEDSIDE, ATTEMPTED TO DRAW BLOOD WORK, UNSUCCESSFUL AFTER 1 ATTEMPT DUE TO PT SWINGING ARMS. PT REFUSED FURTHER ATTEMPTS, TRAILER CHIEF STATED HE WILL ENDORSE.
--- NOTE | 2017-05-28 06:41 | NUR ---
DR NICK AT BEDSIDE TO DISCUSS PT CONDITION AND PLAN OF CARE. INSTRUCTED TO REMOVE GANNON CATHETER AT THIS TIME FOR BLADDER TRAINING. GANNON CATHETER DISCONTINUED, PT TOLERATED WELL. PT ATTEMPTING TO GET OUT OF BED, PT REORIENTED, WILL CONTINUE TO MONITOR.
[2017-05-28 07:10] LABS: HEMATOCRIT 33.6 % (36-48); HEMOGLOBIN 11.1 g/dL (12.0-16.0); MEAN CORPUSCULAR HEMOGLOBIN 31 pg (27-31); MEAN CORPUSCULAR HGB CONC 33 g/dL (33-37); MEAN CORPUSCULAR VOLUME 95 fL (80-94); PLATELET COUNT (AUTO) 209 K/uL (140-450); RED BLOOD CELL COUNT(AUTO) 3.52 MIL/uL (4.20-5.40); RED CELL DISTRIBUTION WIDTH 14.6 % (11.6-13.7); WHITE BLOOD COUNT (AUTO) 16.4 K/uL (4.8-10.8)
[2017-05-28] MEDS: ALBUTEROL SULFATE/IPRATROPIU 3 ML SOL IH SCH ×3 (07:14→20:33)
--- NOTE | 2017-05-28 07:15 | NUR ---
ENDORSED PLAN OF CARE TO AM NURSE. CONDITION STABLE.
--- NOTE | 2017-05-28 07:16 | NUR ---
RECEIVED REPORT FROM RIPSAW OPERATOR NURSE. PATIENT IS SLEEPING, AROUSABLE BY VOICE. NO DISTRESS NOTED. DENIES ANY PAIN. FLACC 0. RESPIRATIONS EVEN, UNLABORED, ON O2 5L/MIN VIA O2 MAXIMIZER WITH O2 SAT AT 96%. AAOX2, CALM, COOPERATIVE, CONFUSED, FORGETFUL. SKIN IS INTACT, COLOR APPROPRIATE TO ETHNICITY, AND WARM TO TOUCH. LUNGS ARE CTA ON ALL LOBES WITH DIMINISHED SOUNDS. ABDOMEN SOFT, NON-DISTENDED. NO GANNON CATHETER IN PLACE IT WAS D/C LAST NIGHT BY RIPSAW OPERATOR NURSE. REVIEWED PLAN OF CARE WITH PATIENT. PATIENT VERBALIZED UNDERSTANDING, REQUIRES REINFORCEMENT. SAFETY MEASURES IN PLACE, CALL LIGHT WITHIN REACH, FALL PRECAUTIONS IN PLACE. WILL CONTINUE TO MONITOR.
[2017-05-28 07:39] LABS: ANION GAP 12.5 (8-16); CARBON DIOXIDE 23.4 mmol/L (21-32); CHLORIDE 109 mmol/L (98-107); CREATININE 0.8 mg/dL (0.6-1.3); GLUCOSE 133 mg/dL (74-106); POTASSIUM 3.9 mmol/L (3.5-5.1); SODIUM SERUM 141 mmol/L (136-145); UREA NITROGEN, BLOOD 20 mg/dL (7-18)
[2017-05-28 07:45] LABS: MAGNESIUM 1.7 mg/dL (1.8-2.4); PHOSPHORUS 3.2 mg/dL (2.5-4.9)
[2017-05-28 07:55] LABS: LYMPHOCYTES % (MANUAL) 6 % (20-46); MONOCYTES % (MANUAL) 2 % (5-12)
[2017-05-28 08:00] VITALS: BP 128/77
[2017-05-28] MEDS ORDERED: MAGNESIUM OXIDE 400 MG TAB PO SCH (09:04)
--- NOTE | 2017-05-28 09:10 | NUR ---
PATIENT LYING IN BED WITH AT BEDSIDE. NO DISTRESS NOTED. RESPIRATIONS EVEN, UNLABORED, ON OW 5L/MIN OXIMIZER. DENIES ANY PAIN. SCHEDULED MEDICATIONS DUE GIVEN. ASSISTED EXTRUDER OPERATOR HORIZONTAL IN REPOSITIONING PATIENT. SAFETY MEASURES IN PLACE, CALL LIGHT WITHIN REACH. WILL CONTINUE TO MONITOR.
[2017-05-28] MEDS: DULoxetine 30 MG CAPDR PO SCH (09:20)
[2017-05-28] MEDS: FAMOTIDINE 20 MG TAB PO SCH ×2 (09:20→21:24)
[2017-05-28] MEDS: DOCUSATE SODIUM 100 MG GELCAP PO SCH ×2 (09:20→21:25)
[2017-05-28] MEDS: clonazePAM 0.5 MG TAB PO SCH ×4 (09:21→21:32)
[2017-05-28] MEDS: CALCIUM ACETATE 667 MG TAB PO SCH (09:22)
[2017-05-28] MEDS: amLODIPine 5 MG TAB PO SCH (09:23)
[2017-05-28] MEDS: LACTOBACILLUS RHAMNOSUS GG 1 EACH CAP PO SCH ×3 (09:23→16:59)
[2017-05-28] MEDS: ATORVASTATIN 20 MG TAB PO SCH (09:26)
[2017-05-28] MEDS: NACL 0.9% 1,000 ML IV SCH ×2 (10:41→18:25)
--- NOTE | 2017-05-28 11:30 | NUR ---
PATIENT LYING IN BED. RESPIRATIONS EVEN, WITH LABORED BREATHING. O2 5L/MIN VIA OXIMIZER RUNNING AND O2 SAT BETWEEN 89-91%. PLACED PATIENT IN HIGH CARPIO'S POSITION AND NOTIFIED RESPIRATORY THERAPIST. RESPIRATORY THERAPIST TO SEE PATIENT. SAFETY MEASURES IN PLACE, CALL LIGHT WITHIN REACH. WILL CONTINUE TO MONITOR.
--- NOTE | 2017-05-28 11:50 | NUR ---
BILINGUAL SALES REPRESENTATIVE CALLED TO BEDSIDE BT RUDOLPH/RN FOR DESATURATION TO 89%-90% INCREASED FIO2 TO 7LPM FROM 5LPM RR 32 PATIENT WITH LUNCH TRAY
[2017-05-28 12:00] VITALS: BP 130/83
[2017-05-28] MEDS: INSULIN LISPRO SLIDING SCALE 100 UNITS/ML VIAL SUBQ PRN ×3 (12:43→22:34)
--- NOTE | 2017-05-28 13:00 | NUR ---
PATIENT SITTING IN BED WITH LUNCH TRAY IN FRONT. PATIENT DRANK HALF OF BOOST SHAKE AND STARTED TO HAVE RHONCHI HEARD THROUGHOUT LUNGS WITH O2 SAT AT 84-86% RESPIRATORY THERAPIST IN ROOM PERFORMED NG SUCTIONING TO CLEAR FLUIDS IN BRONCHUS. CAMPBELL COLOR FLUIDS SUCTIONED OUT OF PATIENT AIRWAYS. RESPIRATORY THERAPIST SUSPECTS PATIENT HAD ASPIRATED SOME OF THE BOOST SHAKE FOR LUNCH. BREATHING TREATMENT ADMINISTERED BY THE RT AND THEN RT PLACED PATIENT ON NON-REBREATHER MASK WITH 15L/MIN O2 RUNNING. O2 SAT IS AT 91-92% WITH NON-REBREATHER MASK. SCHEDULED MEDICATIONS DUE GIVEN. WILL NOTIFY MD OF PATIENT'S CONDITION. SAFETY MEASURES IN PLACE, CALL LIGHT WITHIN REACH, FALL PREVENTIONS IN PLACE. WILL CONTINUE TO MONITOR.
--- NOTE | 2017-05-28 13:02 | NUR ---
LOC AWAKE AND ALERT RESPONSIVE TO ASP NET PROGRAMMER VERBAL COMMAND HFW POSITION SKIN TONE PINK SATURATION 84% ON 7LPM VIA OXYMIZER RR 36 BREATH SOUNDS COARSE RHONCHI BILATERAL NASOTRACHEAL REQUIRED EDUCATION PROVIDED TO PATIENT WITH ACKNOWLEDGEMENT USING STERILE TECHNIQUE APPLIED MEDLINE LUBRICANT TO END OF A MEDLINE 14FR SUCTION CATHETER INSERTED TO RIGHT NARES X2 OBTAINED LARGE THIN CAMPBELL SECRETIONS TOLERATED PROCEDURE WELL WITHOUT ADVERSE REACTIONS NOTED PLACE PATIENT ON SIMPLE MASK AT 10LPM ASP NET PROGRAMMER TO MONITOR REVIEWED SUCTIONED CONTENT WITH RUDOLPH/RN POSSIBLE ASPIRATION FROM BOOST SHAKE PATIENT CONSUMED DURING LUNCH MEAL
--- NOTE | 2017-05-28 13:12 | NUR ---
ENCOURAGED DEEP BREATHING AND COUGH DURING THERAPY POST [facility]N THERAPY CHANGED OXYGEN DEVICE TO SIMPLE MASK AT 10LPM RETANNER TO MONITOR Addendum: 05/28/17 at 1455 by Josué Oropeza RT RUDOLPH/REGULO NOTIFIED OF SIMPLE MASK AT 10LPM
--- NOTE | 2017-05-28 13:22 | NUR ---
CHANGED OXYGEN DEVICE TO A NON REBREATHER AT 15LPM CHEMICAL EQUIPMENT SALES ENGINEER TO MONITOR RUDOLPH/RN NOTIFIED
--- NOTE | 2017-05-28 13:40 | NUR ---
NOTIFIED DR. NICK, VERBALLY, REGARDING PATIENT'S EPISODE OF LOW O2 SAT WITH POSSIBLE ASPIRATION OF BOOST SHAKE FOR LUNCH, AND MEASURES TAKEN BY THE NURSE AND RESPIRATORY THERAPIST. ALSO NOTIFIED MD, VERBALLY, OF PATIENT'S HEART RATE IN BETWEEN 110-140'S. MD. MD VERBALIZED UNDERSTANDING OF PATIENT'S CONDITION. WILL CONTINUE TO MONITOR PATIENT PER CARE PLAN AND NOTIFY FURTHER ABNORMALITIES TO MD.
--- NOTE | 2017-05-28 14:02 | NUR ---
RUDOLPH/RN NOTIFIED OF OXYGEN SATURATION 95% ON A NON REBREATHER AT 15LPM
--- NOTE | 2017-05-28 15:21 | NUR ---
PATIENT SLEEPING, AROUSABLE BY VOICE. NO DISTRESS NOTED. RESPIRATIONS EVEN, UNLABORED, ON NON-REBREATHER MASK AT 15L/MIN WITH O2 SAT AT 95%. IV INTACT, PATENT AND INFUSING. SAFETY MEASURES IN PLACE, CALL LIGHT WITHIN REACH. WILL CONTINUE TO MONITOR.
[2017-05-28 16:00] VITALS: BP 136/79
--- NOTE | 2017-05-28 17:30 | NUR ---
PATIENT LYING IN BED TRYING TO GET UP TO GO TO BATHROOM. REINFORCED PATIENT TEACHING TO NOT TO GET UP FROM BED DUE TO FALL RISK. PATIENT HAS DIAPERS ON REINFORCED TEACHING THAT SHE CAN GO TO THE BATHROOM IN HER BED. REINFORCED PATIENT TEACHING TO KEEP NON-REBREATHER MASK ON O2 SAT GOES TO 88% WHEN OFF. PATIENT VERBALIZES UNDERSTANDING. REQUIRES REINFORCEMENT. SCHEDULED MEDICATIONS DUE GIVEN. DENIES ANY PAIN. FLACC 0. CONDITION UNCHANGED. HEART RATE CONTINUES TO BE IN THE 110-140 RANGE. MD ALREADY AWARE. SAFETY MEASURES IN PLACE, CALL LIGHT WITHIN REACH. WILL CONTINUE TO MONITOR.
--- NOTE | 2017-05-28 18:36 | NUR ---
PATIENT LYING IN BED WITH AT BEDSIDE. NO DISTRESS NOTED. RESPIRATIONS EVEN, UNLABORED, ON NON-REBREATHER MASK 15L/MIN WITH O2 SAT AT 96%. CONDITION UNCHANGED. CONTINUES TO BE AAOX2, AND CONFUSED. SAFETY MEASURES IN PLACE, CALL LIGHT WITHIN REACH, FALL PREVENTIONS IN PLACE. WILL CONTINUE TO MONITOR.
--- NOTE | 2017-05-28 19:15 | NUR ---
GAVE REPORT TO COMMISSARY PRODUCTION SUPERVISOR NURSE FOR CONTINUITY OF CARE. PATIENT IN STABLE CONDITION.
--- NOTE | 2017-05-28 19:16 | NUR ---
RECEIVED HANDOFF REPORT FROM AM RN. PATIENT A&OX2. PATIENT DENIES PAIN. FLACC 0. PATIENT ON NON-REBREATHER O2 SAT IS 96. BREATHING IN SYMMETRICAL AND NON-LABORED. RR 16. IV SITE PATENT AND INTACT. NO SIGNS OR SYMPTOMS OF ACUTE DISTRESS NOTED. CALL LIGHT WITHIN REACH. WILL CONTINUE TO MONITOR.
[2017-05-28 20:00] VITALS: BP 156/87
[2017-05-28] MEDS: LEVOFLOXACIN 750 MG/D5W PREMIX 150 ML IV SCH (20:25)
--- NOTE | 2017-05-28 20:35 | NUR ---
PM MEDS GIVEN WITH EDUCATION. REINFORCEMENT NEEDED. PATIENT O2 SAT IS 98% ON NON REBREATHER MASK. PATIENTS RR 16 SYMMETRICAL AND NON LABORED. PATIENT DENIES PAIN. NO SIGNS OR SYMPTOMS OF ACUTE DISTRESS NOTED. CALL LIGHT WITHIN REACH. WILL CONTINUE TO MONITOR.
[2017-05-28] MEDS: LISINOPRIL 10 MG TAB PO SCH (21:25)
[2017-05-29] VITALS (23 sets, daily range): BP systolic 98–159; BP diastolic 55–101
[2017-05-29] MEDS: NACL 0.9% 1,000 ML IV SCH ×2 (00:59→14:05)
--- NOTE | 2017-05-29 01:47 | NUR ---
PATIENT RESTING IN BED. PATIENT SOILED HERSELF. CHANGED LINENS AND GOWN. PATIENT DENIES PAIN. NO SIGNS OR SYMPTOMS OF ACUTE DISTRESS NOTED. NON REBREATHER IN PLACE. O2 SAT IS 97%. RR 16 NON LABORED AND SYMMETRICAL. CALL LIGHT WITHIN REACH. WILL CONTINUE TO MONITOR.
[2017-05-29] MEDS: CLINDAMYCIN 600 MG in DEXTROSE 5% 50 ML IV SCH (04:25)
[2017-05-29] MEDS: methylPREDNISolone SS 40 MG/ML VIAL IVP SCH ×3 (05:31→20:41)
[2017-05-29] MEDS: LEVOTHYROXINE 0.05 MG TAB PO SCH (05:31)
[2017-05-29] MEDS: ALBUTEROL SULFATE/IPRATROPIU 3 ML SOL IH SCH ×3 (06:30→19:07)
[2017-05-29] MEDS: BLOOD GLUCOSE MONITORING 1 DEV DEV FS SCH ×4 (06:30→20:37)
--- NOTE | 2017-05-29 07:14 | NUR ---
ENDORSED PLAN OF CARE TO AM RN. PATIENT IN STABLE CONDITION. SAFETY MEASURES ENSURED.
--- NOTE | 2017-05-29 07:15 | NUR ---
RECEIVED REPORT FROM LACE FINISHER NURSE. PATIENT IS SLEEPING, AROUSABLE BY VOICE. NO DISTRESS NOTED. DENIES ANY PAIN. FLACC 0. RESPIRATIONS EVEN, UNLABORED, ON NON-REBREATHER MASK 15L/MIN O2 WITH O2 SAT AT 95%. AAOX2, CALM, COOPERATIVE, CONFUSED, FORGETFUL. SKIN IS INTACT, BUT HAS MULTIPLE DISCOLORATIONS AND BRUISES ON B/L UE. SKIN COLOR APPROPRIATE TO ETHNICITY, AND WARM TO TOUCH. LUNGS ARE DIMINISHED ON ALL LOBES. ABDOMEN SOFT, NON-DISTENDED. IV SITE IS INTACT, PATENT, AND INFUSING. REVIEWED PLAN OF CARE WITH PATIENT. PATIENT VERBALIZED UNDERSTANDING, REQUIRES REINFORCEMENT. SAFETY MEASURES IN PLACE, CALL LIGHT WITHIN REACH, FALL PRECAUTIONS IN PLACE. WILL CONTINUE TO MONITOR.
[2017-05-29 07:49] LABS: ANION GAP 14.2 (8-16); CARBON DIOXIDE 24.8 mmol/L (21-32); CHLORIDE 106 mmol/L (98-107); GLUCOSE 163 mg/dL (74-106); SODIUM SERUM 142 mmol/L (136-145); UREA NITROGEN, BLOOD 17 mg/dL (7-18)
[2017-05-29 07:59] LABS: CREATININE 0.7 mg/dL (0.6-1.3)
[2017-05-29 08:10] LABS: MAGNESIUM 1.6 mg/dL (1.8-2.4); PHOSPHORUS 3.1 mg/dL (2.5-4.9)
[2017-05-29] MEDS: clonazePAM 0.5 MG TAB PO SCH ×4 (08:47→21:00)
[2017-05-29] MEDS: ATORVASTATIN 20 MG TAB PO SCH (08:48)
[2017-05-29] MEDS: CALCIUM ACETATE 667 MG TAB PO SCH (08:48)
[2017-05-29] MEDS: DULoxetine 30 MG CAPDR PO SCH (08:48)
[2017-05-29] MEDS: FAMOTIDINE 20 MG TAB PO SCH (08:48)
[2017-05-29] MEDS: amLODIPine 5 MG TAB PO SCH (08:48)
[2017-05-29] MEDS: DOCUSATE SODIUM 100 MG GELCAP PO SCH ×2 (08:48→22:52)
[2017-05-29] MEDS: LACTOBACILLUS RHAMNOSUS GG 1 EACH CAP PO SCH ×3 (08:49→17:00)
[2017-05-29] MEDS ORDERED: MAG SULF 2000 MG/WATER PREMIX 50 ML IV SCH (08:51)
--- NOTE | 2017-05-29 09:27 | NUR ---
CHANGED PT TO 50% VENTI MASK O2 SAT IS 91% PT IS RESTING WITH AT BEDSIDE INFORMED RN RUDOLPH OF CHANGES MADE
[2017-05-29] MEDS ORDERED: POTASSIUM CHLORIDE 20 MEQ, LIDOCAINE 1% 25 MG in NACL 0.9% 250 ML IV SCH (09:30)
--- NOTE | 2017-05-29 09:30 | NUR ---
PATIENT LYING IN BED WITH VENTI MASK AT 50% WITH O2 SAT AT 90%.VENTI MASK PLACED TO TRY TO WEAN PATIENT OF NON-REBREATHER. RESPIRATIONS EVEN, UNLABORED. NO DISTRESS NOTED AT THIS TIME. DENIES ANY PAIN. SCHEDULED MEDICATIONS DUE GIVEN. ASSISTED ARCHITECTURAL DRAFTING INSTRUCTOR IN REPOSITIONING PATIENT. SAFETY MEASURES IN PLACE, CALL LIGHT WITHIN REACH, PULSE OX ON PATIENT. WILL CONTINUE TO MONITOR.
--- NOTE | 2017-05-29 09:45 | NUR ---
PATIENT'S O2 SAT DOWN TO 80-84% WITH VENTI MASK ON 50% AND PATIENT LUNGS SOUND CONGESTED. NOTIFIED RT AND RT IMMEDIATELY CAME TO PATIENT'S ROOM. RT PLACED PATIENT BACK ON NON-REBREATHER MASK AT 15L/MIN. RT THEN PERFORMED NT SUCTION TO CLEAR FLUID IN AIRWAYS. O2 SAT INCREASED TO 85-90% WITH NON-REBREATHER MASK AND AFTER NT SUCTION, HOWEVER, PATIENT CONTINUED TO HAVE LABORED BREATHING, MORE LETHARGIC COMPARED TO IN THE MORNING, AND HANDS FEELING COLD. NOTIFIED DR. RUSHING. SAW PATIENT AT BEDSIDE AND DECIDED TO TRANSFER PATIENT TO ICU DUE TO LOW O2 SAT. ASSISTED WITH TRANSFER OF PATIENT TO ICU VIA [facility]. PATIENT TRANSFERRED TO ICU AT 1012 AND GAVE REPORT TO ICU NURSE
--- NOTE | 2017-05-29 10:20 | NUR ---
RECEIVED PT FROM TELEMETRY UNIT. PT LETHARGIC IN RESPIRATORY DISTRESS. TRANSFERRED PT FROM [facility] TO UNIT BED. DR. JUSTICE WITH DR. NICK PRESENTED AT BEDSIDE. WILL FOLLOW UP WITH ORDER.
[2017-05-29 10:22] LABS: HEMATOCRIT 39.8 % (36-48); HEMOGLOBIN 12.9 g/dL (12.0-16.0); MEAN CORPUSCULAR HEMOGLOBIN 31 pg (27-31); MEAN CORPUSCULAR HGB CONC 33 g/dL (33-37); MEAN CORPUSCULAR VOLUME 95 fL (80-94); PLATELET COUNT (AUTO) 268 K/uL (140-450); RED CELL DISTRIBUTION WIDTH 14.5 % (11.6-13.7); WHITE BLOOD COUNT (AUTO) 23.5 K/uL (4.8-10.8)
[2017-05-29] MEDS ORDERED: MIDAZOLAM MDV 50 MG in NACL 0.9% 40 ML IV PRN (10:35)
--- NOTE | 2017-05-29 10:40 | NUR ---
PT TRANSFERRED TO ICU [address] DR. JUSTICE AT BEDSIDE TO INTUBATE PT AT 1035 PT INTUBATED WITH 7.5 ET TUBE SECURED WITH ANCHOR FAST AT 24CM AT MIDLINE VENT SETTINGS AC12 VT400 PEEP 5 FIO2 60% ALARMS ON AND FUNCTIONING PROPERLY, AMBU BAG AT SIDE OF VENT AND VENT IS PLUGGED INTO RED OUTLET, B\S ARE COARSE BILATERALLY, WILL RE DRAWN ABG AT 1130.
[2017-05-29 10:57] LABS: BASOPHILS % (MANUAL) 0 % (0-2); EOSINOPHILS % (MANUAL) 0 % (0-4); LYMPHOCYTES % (MANUAL) 4 % (20-46); MONOCYTES % (MANUAL) 5 % (5-12)
--- NOTE | 2017-05-29 11:45 | NUR ---
ABG DRAWN ON RR WITHOUT INCIDENT AND RESULTS GIVEN TO DR. NICK AND THE FIO2 WAS INCREASED TO 100%
[2017-05-29] MEDS: MORPHINE SULFATE 50 MG in NACL 0.9% 45 ML IV PRN (12:17)
--- NOTE | 2017-05-29 13:00 | NUR ---
SCHEDULED PO MEDS NOT GIVEN DUE TO PT'S INTUBATED AND NGT NOT IN PLACE.
--- NOTE | 2017-05-29 13:21 | NUR ---
VENT CHECK, NO HHN GIVEN DUE TO HIGH HEART RATE OF 158 AND RR 45 AND PT IS VERY AGITATED WITH FAMILY AT BEDSIDE RN SHA NOTIFIED AT [address] JUSTICE AND ORDERED TO HAVE VENT CHANGES MADE TO PC15 ITIME 1.2 RR 12 AND KEEP VT ABOVE 400 AND ABG IN ONE HOUR
[2017-05-29] MEDS ORDERED: DILTIAZEM 25 MG/5 ML VIAL IVP SCH (13:24)
--- NOTE | 2017-05-29 14:48 | NUR ---
ABG DRAWN ON LR WITHOUT INCIDENT AND GIVEN TO DR. SANON WITH NO CHANGES MADE TO VENT
--- NOTE | 2017-05-29 14:54 | NUR ---
VENT CHECK, NO SXN REQUIRED AT THIS TIME, DR. JUSTICE CALLED AND GIVEN REPORT OF ABG AND ORDERED TO HAVE PEEP INCREASED TO 8
--- NOTE | 2017-05-29 15:40 | NUR ---
PT IS RESTLESS. DR. HAQUE AND DR. NICK GAVE VERBAL ORDER TO INCREASE MIDAZOLAM DRIP TO 10 MG/HR PRIOR TO CENTRAL LINE INSERTION.
--- NOTE | 2017-05-29 15:44 | NUR ---
HEPARIN LOCK FLUSH [address] NICK DURING CENTRAL LINE PROCEDURE.
--- NOTE | 2017-05-29 16:15 | NUR ---
PT HEARTH RATE KEEP GO UP . DR NICK NOTIFIED.
--- NOTE | 2017-05-29 16:30 | NUR ---
DR. NICK CALL BACK ORDERED CARDIZEM 19 MG IV PUSH. GIVE MEDICATION ORDER, Addendum: 05/29/17 at 2136 by Maritza Orantes RN DOSE TYPED BY MISTAKE. IT WAS 10 MG IVP.
[2017-05-29] MEDS ORDERED: MORPHINE SULFATE 2 MG/ML SYR ONE (16:39)
--- NOTE | 2017-05-29 17:15 | NUR ---
VENT CHECK, SXN PT FOR SPUTUM COLLECTION BLOOD TINT SMALL AMT FROM ET TUBE PT IS RESTING
--- NOTE | 2017-05-29 17:30 | NUR ---
DR. CORNEJO GAVE VERBAL ORDER TO INCREASE MIDAZOLAM DRIP TO 15MG/HR PRIOR TO CENTRAL LINE INSERTION. PREVIOUS CENTRAL LINE INSERTION WAS UNSUCCESSFUL.
--- NOTE | 2017-05-29 17:35 | NUR ---
HEPARIN 1,000 UNITS GIVEN BY DURING CENTRAL LINE PROCEDURE.
[2017-05-29] MEDS ORDERED: PIPERACILLIN/TAZOBACTAM 3.375 GM VIAL IV ONE (18:32)
[2017-05-29] MEDS: PIPER/TAZO 3.375GM/D5W PREMIX 50 ML IV SCH ×2 (18:35→23:54)
--- NOTE | 2017-05-29 19:30 | NUR ---
RECEIVED REPORT FROM REGULO DALTON. VS STABLE AT THIS TIME. PT AFEBRILE. ON VERSED AND MORPHINE DRIP. RASS -4. ETT TO VENT WITH SETTINGS A/C PC FIO2 80%, RR 15, AND PEEP 8. NO SIGNS OF DISTRESS NOTED. OGT IN PLACE. WAITING FOR PLACEMENT CONFIRMATION. PT SINUS TACHYCARDIA ON MONITOR. PULSES PALPABLE IN ALL EXTREMITIES. BOWEL SOUNDS ACTIVE. GANNON CATHETER INSERTED WITH STERILE TECHNIQUE. INITIAL OUTPUT WAS 200ML CLEAR AND LIGHT YELLOW URINE. NO FOUL ODOR NOTED. SCD IN PLACE. PT WITH RIGHT INTERNAL JUGULAR CENTRAL LINE. ASYMPTOMATIC AND INTACT. HOB AT 30 DEGREES. BED AT LOW POSITION. ALL SAFETY PRECAUTIONS IN PLACE. CALL LIGHT WITHIN REACH. WILL CONTINUE TO MONITOR PT.
--- NOTE | 2017-05-29 19:30 | NUR ---
ENDORSED REPORT AT BEDSIDE TO NELSY FOR CONTINUITY OF CARE.
--- NOTE | 2017-05-29 19:40 | NUR ---
DR. HOLLY ORDERED NOT TO USE OGT UNTIL THE PLACEMENT IS CHECKED BY XRAY.
[2017-05-29] MEDS: DEXT 5% / NACL 0.9% 500 ML IV SCH ×2 (20:00→20:19)
--- NOTE | 2017-05-29 20:45 | NUR ---
SCHEDULED MEDICATIONS ADMINISTERED. PT TOLERATED WELL. VS STABLE AT THIS TIME. NO CHANGE IN CONDITION. WILL CONTINUE TO MONITOR.
[2017-05-29] MEDS: INSULIN LISPRO SLIDING SCALE 100 UNITS/ML VIAL SUBQ PRN (20:54)
[2017-05-29] MEDS: MIDAZOLAM MDV 100 MG in NACL 0.9% 80 ML IV PRN (22:16)
--- NOTE | 2017-05-29 22:30 | NUR ---
KLONOPIN NOT ADMINISTERED DUE TO PT IS CURRENTLY ON VERSED DRIP.
--- NOTE | 2017-05-29 22:43 | NUR ---
DR. ROBERT ORDERED TO ADVANCE THE OGT MORE TO HAVE IT IN THE STOMACH AND OK TO START FEEDING AND MEDS AFTER CONFIRMING THE RIGHT PLACEMENT. ADVANCED THE OGT AND CONFIRMED THE RIGHT PLACEMENT BY 2 NURSES. WILL START THE FEEDING AND THE G-TUBE MEDS ORDERED.
[2017-05-29] MEDS: LISINOPRIL 10 MG TAB PO SCH (22:52)
[2017-05-30] VITALS (68 sets, daily range): BP systolic 86–122; BP diastolic 50–84
--- NOTE | 2017-05-30 | NUR ---
SCHEDULED MEDICATION ADMINISTERED. PT CURRENTLY ON VERSED AND MORPHINE DRIP. RASS -4. NO CHANGE OF CONDITION AT THIS TIME. VS STABLE. ALL SAFETY PRECAUTIONS IN PLACE. WILL CONTINUE TO MONITOR.
[2017-05-30 01:13] LABS: BILIRUBIN,URINE NEGATIVE (NEGATIVE); BLOOD, URINE NEGATIVE (NEGATIVE); COLOR,URINE YELLOW (YELLOW); LEUKOCYTE ESTERASE ,URINE NEGATIVE (NEGATIVE); NITRITE, URINE NEGATIVE (NEGATIVE); PH,URINE 6.5 (5.0-9.0); UGLUCOSE NEGATIVE (NEGATIVE)
[2017-05-30] MEDS: ALBUTEROL SULFATE/IPRATROPIU 3 ML SOL IH SCH ×4 (01:35→18:41)
[2017-05-30 01:46] LABS: APPEARANCE,URINE CLEAR (CLEAR)
--- NOTE | 2017-05-30 02:15 | NUR ---
PT VS STABLE AT THIS TIME. NO CHANGE IN CONDITION. NO SIGNS OF DISTRESS NOTED. WILL CONTINUE TO MONITOR
--- NOTE | 2017-05-30 03:09 | NUR ---
PT NOTED WITH A JAC SCALE SCORE OF 12. NOTIFIED DR. WARE, ACCORDING TO HER SHE WILL ORDER FNS AND WOUND CONSULT.
[2017-05-30] MEDS: DEXT 5% / NACL 0.9% 500 ML IV SCH ×2 (03:28→10:37)
[2017-05-30] MEDS: MORPHINE SULFATE 50 MG in NACL 0.9% 45 ML IV PRN ×3 (03:53→20:51)
[2017-05-30] MEDS: methylPREDNISolone SS 40 MG/ML VIAL IVP SCH ×3 (04:35→20:39)
[2017-05-30] MEDS: MIDAZOLAM MDV 100 MG in NACL 0.9% 80 ML IV PRN ×3 (04:36→20:54)
[2017-05-30 05:15] LABS: HEMATOCRIT 31.1 % (36-48); MEAN CORPUSCULAR HEMOGLOBIN 31 pg (27-31); MEAN CORPUSCULAR HGB CONC 32 g/dL (33-37); MEAN CORPUSCULAR VOLUME 95 fL (80-94); PLATELET COUNT (AUTO) 183 K/uL (140-450); RED BLOOD CELL COUNT(AUTO) 3.28 MIL/uL (4.20-5.40); RED CELL DISTRIBUTION WIDTH 14.6 % (11.6-13.7)
--- NOTE | 2017-05-30 05:28 | NUR ---
LOWERED FIO2 TO 70%. SATS 96%
[2017-05-30] MEDS: PIPER/TAZO 3.375GM/D5W PREMIX 50 ML IV SCH ×4 (05:40→23:40)
[2017-05-30] MEDS: LEVOTHYROXINE 0.05 MG TAB PO SCH (05:40)
--- NOTE | 2017-05-30 05:50 | NUR ---
SCHEDULED MEDICATIONS ADMINISTERED. PT LAYING COMFORTABLY. RASS -4. NO CHANGE IN CONDITION AT THIS TIME. ALL SAFETY PRECAUTIONS IN PLACE. WILL CONTINUE TO MONITOR PT.
[2017-05-30 06:16] LABS: ANION GAP 11.4 (8-16); CARBON DIOXIDE 26.1 mmol/L (21-32); CHLORIDE 111 mmol/L (98-107); GLUCOSE 269 mg/dL (74-106); SODIUM SERUM 146 mmol/L (136-145); UREA NITROGEN, BLOOD 17 mg/dL (7-18)
[2017-05-30 06:20] LABS: MAGNESIUM 1.8 mg/dL (1.8-2.4)
[2017-05-30 06:34] LABS: POTASSIUM 2.5 mmol/L (3.5-5.1)
--- NOTE | 2017-05-30 06:40 | NUR ---
REC'D PT ON CARESCAPE VENT SETTING PC15 PEEP 5 FIO2 70% RR 12 ITIME 1.2 ALARMS ON AND FUNCTIONING PROPERLY, AMBU BAG AT SIDE OF VENT AND VENT IS PLUGGED INTO RED OUTLET, I\L TX GIVEN WITH DUONEB 3ML WITH NO ADVERSE REACTION POST TX B\S ARE DIMINISHED BILATERALLY, SNX PT SMALL AMT OF WHITE SECRETIONS, PT IS ORALLY INTUBATED WITH 7.5 ET TUBE AND SECURED WITH ANCHOR FAST AT 24 CM MIDLINE AND CUFF PRESSURE IS 30 CM H20 AND PT IS RESTING
[2017-05-30 06:45] LABS: LYMPHOCYTES % (MANUAL) 5 % (20-46); MONOCYTES % (MANUAL) 7 % (5-12)
[2017-05-30] MEDS: BLOOD GLUCOSE MONITORING 1 DEV DEV FS SCH ×4 (06:58→20:49)
[2017-05-30] MEDS ORDERED: KCL 20 MEQ/WATER INJ PREMIX 200 ML IV SCH (07:00)
[2017-05-30] MEDS ORDERED: POTASSIUM CHLORIDE 10 MEQ TABER PO SCH (07:00)
--- NOTE | 2017-05-30 07:15 | NUR ---
REPORT GIVEN TO REGULO LARES FOR CONTINUITY OF CARE. PT ON STABLE CONDITION.
--- NOTE | 2017-05-30 07:30 | NUR ---
REPORT RECEIVED FROM NIGHT NURSE. PT IS SEDATED WITH RASS -4. SINUS TACHY WITH PVC ON MONITOR. PT IS ETT TO VENT W/ SETTINGS AC/PC, P 15 CMH2O, FIO2 70%, RR 12, PEEP 8. BILATERAL LUNGS CLEAR AT THIS TIME. CENTRAL LINE TLC TO RIGHT IJ PATENT AND INTACT, INFUSING D5NS@70ML/HR, VERSED DRIP AT 13 MG/HR, MORPHINE DRIP AT 5 MG/H. ABDOMEN SOFT, NONDISTENDED. OGT IN PLACE, PLACEMENT CONFIRMED. PT IS RECEIVING TUBE FEEDING ORDERED. 40 ML RESIDUALS NOTED. GANNON CATH IN PLACE DRAINING URINE TO GRAVITY DRAINAGE BAG. SKIN IS WARM TO TOUCH. SCDS IN PLACE FOR VTE PROPHYLAXIS. HOB 30 DEGREES AND BED IN LOW POSITION. SAFETY MEASURES MAINTAINED. WILL CONTINUE TO MONITOR.
[2017-05-30] MEDS: CALCIUM ACETATE 667 MG TAB PO SCH (07:36)
[2017-05-30] MEDS: LACTOBACILLUS RHAMNOSUS GG 1 EACH CAP PO SCH ×3 (07:36→18:01)
--- NOTE | 2017-05-30 08:04 | NUR ---
DR. BUENROSTRO AND RESIDENT GROUP IN TO SEE PT. WILL FOLLOW UP ON ORDERS.
[2017-05-30] MEDS ORDERED: POTASSIUM CHLORIDE 20% 40 MEQ/15 ML UDC GT SCH (08:14)
[2017-05-30] MEDS: ATORVASTATIN 20 MG TAB PO SCH (08:39)
[2017-05-30] MEDS: PANTOPRAZOLE 40 MG INJ VIAL IVP SCH (08:39)
[2017-05-30] MEDS: LEVOFLOXACIN 750 MG/D5W PREMIX 150 ML IV SCH (08:39)
[2017-05-30] MEDS: DULoxetine 30 MG CAPDR PO SCH (08:40)
[2017-05-30] MEDS: clonazePAM 0.5 MG TAB PO SCH ×4 (08:42→20:41)
[2017-05-30] MEDS: DOCUSATE 100 MG/10 ML UDC GT SCH ×2 (08:44→20:40)
[2017-05-30] MEDS: amLODIPine 5 MG TAB PO SCH (08:44)
--- NOTE | 2017-05-30 08:55 | NUR ---
VENT CHECK, NO SXN REQUIRED AT THIS TIME AIRWAY IS PATENT AND PT IS SLEEPING WITH REGULO LARES AT BEDSIDE
--- NOTE | 2017-05-30 09:05 | NUR ---
MEDICATIONS ADMINISTERED. PT TOLERATED WELL. HELD NORVASC FOR DECREASED BP OF 94/63.
--- NOTE | 2017-05-30 09:16 | NUR ---
REAL, MR. HARGROVE, AT BEDSIDE AND WAS UPDATED ON PT.
--- NOTE | 2017-05-30 10:00 | NUR ---
PT WEARING TWO RINGS, ONE RING EACH ON LEFT AND RIGHT RING FINGERS. ASKED , MR. HARGROVE, IF HE WANTS TO TAKE THEM HOME. PER , PT HAS THEM ON FOR MANY YEARS AND LEAVE THE RINGS ON PT.
--- NOTE | 2017-05-30 10:08 | NUR ---
DR. HARTMANN IN TO SEE AND EXAMINE PT. WILL FOLLOW UP ON ORDERS.
--- NOTE | 2017-05-30 11:22 | NUR ---
VENT CHECK, NO SXN REQUIRED AT THIS TIME PT IS SLEEPING AND AIRWAY IS PATENT
--- NOTE | 2017-05-30 12:52 | NUR ---
DR. LARIOS MADE AWARE OF LOW BP AND INCREASED HR. WILL FOLLOW UP ON ORDERS.
[2017-05-30 12:54] LABS: ANION GAP 12.9 (8-16); CARBON DIOXIDE 22.4 mmol/L (21-32); CHLORIDE 112 mmol/L (98-107); GLUCOSE 248 mg/dL (74-106); POTASSIUM 4.3 mmol/L (3.5-5.1); SODIUM SERUM 143 mmol/L (136-145); UREA NITROGEN, BLOOD 17 mg/dL (7-18)
[2017-05-30] MEDS ORDERED: NACL 0.9% 1,000 ML IV SCH (12:55)
[2017-05-30] MEDS: INSULIN LISPRO SLIDING SCALE 100 UNITS/ML VIAL SUBQ PRN ×3 (13:01→20:55)
--- NOTE | 2017-05-30 13:05 | NUR ---
VENT CHECK, SNX PT SMALL AMT OF WHITE SECRETIONS, NO HHN GIVEN DUE TO HIGH HEART RATE OF 133 RN ARNAUD NOTIFIED AND DECREASED FIO2 TO 60%
[2017-05-30] MEDS: DEXT 5% /NACL 0.9% 1,000 ML IV SCH ×2 (13:20→13:53)
--- NOTE | 2017-05-30 13:49 | NUR ---
DR. SANON IN TO SEE AND EXAMINE PT. WILL FOLLOW UP ON ORDERS.
--- NOTE | 2017-05-30 15:01 | NUR ---
VENT CHECK, NO SXN REQUIRED AT THIS TIME, PT IS SLEEPING WITH NO SIGNS OF DISTRESS NOTED AT THIS TIME,
--- NOTE | 2017-05-30 16:00 | NUR ---
TEMP 100.4F. REMOVED EXTRA BLANKETS. NO S/SX OF ACUTE DISTRESS AT THIS TIME. WILL CONTINUE TO MONITOR.
--- NOTE | 2017-05-30 16:00 | NUR ---
PT'S SON AT BEDSIDE AND WAS UPDATED ON PT. NO S/SX OF ACUTE DISTRESS AT THIS TIME. DR. LARIOS MADE AWARE OF PT'S INCREASED HR OF 130. WILL CONTINUE TO MONITOR.
--- NOTE | 2017-05-30 16:45 | NUR ---
RECHECKED TEMP. 98.9F. VS STABLE. FAMILY AT BEDSIDE. WILL CONTINUE TO MONITOR.
--- NOTE | 2017-05-30 16:53 | NUR ---
vent check, no snx required at this time pt is sleeping with no signs of distress noted at this time family at bedside
--- NOTE | 2017-05-30 19:35 | NUR ---
REPORT GIVEN TO NIGHT NURSE FOR CONTINUITY OF CARE. PT IS IN STABLE CONDITION.
--- NOTE | 2017-05-30 19:35 | NUR ---
RECEIVED REPORT FROM AM NURSE. PT RECEIVED IN BED, SLEEPING. SEDATED WITH VERSED DRIP. RASS -3. GCS 7. BILATERAL PERRLA OBSERVED. FLACC 0. ETT TO VENT. TOLERATING WELL. ST ON MONITOR. SKIN INTACT BUT MULTIPLE DISCOLORATION NOTED. R FOREARM IV SALINE LOCKED. INTACT AND PATENT. R IJ CENTRAL LINE NOTED. CONTINUING VERSED AND MORPHINE DRIP. TOLERATING WELL. VITALS WITHIN NORMAL. OGT TO TF. 10 ML RESIDUAL NOTED. TOLERATING TUBE FEEDING WELL. PLACEMENT CHECKED. POSITIVE PLACEMENT OBTAINED. BOWEL SOUND PRESENT X 4 QUADRANT. ABDOMEN SOFT, NONTENDER. GANNON CATHETER NOTED. DRAINING CLEAR, YELLOW URINE. NO S/SX OF ACUTE DISTRESS NOTED. BED AT LOWEST SETTING. CALL LIGHT WITHIN REACH. WILL CONTINUE TO MONITOR FOR CHANGES.
[2017-05-30] MEDS: LISINOPRIL 10 MG TAB PO SCH (20:42)
--- NOTE | 2017-05-30 20:55 | NUR ---
MEDICATION ADMINISTERED ORDERED. TOLERATED WELL. 10 ML RESIDUAL NOTED IN OGT. WILL CONTINUE TO MONITOR FOR CHANGES
--- NOTE | 2017-05-30 21:00 | NUR ---
PT CONTINUE TO BE AT RASS -4. TOLERATING DRIPS WELL. NO S/SX OF ACUTE DISTRESS NOTED. WILL CONTINUE TO MONITOR.
--- NOTE | 2017-05-30 22:45 | NUR ---
AT BEDSIDE TO SEE PT. WILL CONTINUE TO MONITOR.
--- NOTE | 2017-05-30 23:00 | NUR ---
PT CONTINUE TO BE AT RASS -4. TOLERATING DRIPS WELL. NO S/SX OF ACUTE DISTRESS NOTED. WILL CONTINUE TO MONITOR.
[2017-05-31] VITALS (31 sets, daily range): BP systolic 103–147; BP diastolic 63–97
--- NOTE | 2017-05-31 | NUR ---
PT CONTINUE TO BE AT RASS -4. TOLERATING DRIPS WELL. NO S/SX OF ACUTE DISTRESS NOTED. WILL CONTINUE TO MONITOR.
[2017-05-31] MEDS: ALBUTEROL SULFATE/IPRATROPIU 3 ML SOL IH SCH ×4 (00:19→19:23)
--- NOTE | 2017-05-31 02:00 | NUR ---
PT CONTINUE TO BE AT RASS -4. TOLERATING DRIPS WELL. NO S/SX OF ACUTE DISTRESS NOTED. WILL CONTINUE TO MONITOR.
--- NOTE | 2017-05-31 04:00 | NUR ---
BED BATH GIVEN TO PT. TOLERATED WELL. VITALS WITHIN NORMAL. ORAL CARE PERFORM ORDERED. TOLERATED WELL. WILL CONTINUE TO MONITOR FOR CHANGES.
[2017-05-31] MEDS: methylPREDNISolone SS 40 MG/ML VIAL IVP SCH ×2 (05:00→13:03)
--- NOTE | 2017-05-31 05:00 | NUR ---
PT CONTINUE TO BE AT RASS -4. TOLERATING DRIPS WELL. NO S/SX OF ACUTE DISTRESS NOTED. WILL CONTINUE TO MONITOR.
[2017-05-31 05:09] LABS: HEMATOCRIT 29.4 % (36-48); HEMOGLOBIN 9.6 g/dL (12.0-16.0); MEAN CORPUSCULAR HEMOGLOBIN 31 pg (27-31); MEAN CORPUSCULAR HGB CONC 33 g/dL (33-37); MEAN CORPUSCULAR VOLUME 96 fL (80-94); PLATELET COUNT (AUTO) 167 K/uL (140-450); RED BLOOD CELL COUNT(AUTO) 3.07 MIL/uL (4.20-5.40); RED CELL DISTRIBUTION WIDTH 15.1 % (11.6-13.7); WHITE BLOOD COUNT (AUTO) 16.3 K/uL (4.8-10.8)
[2017-05-31 05:37] LABS: MAGNESIUM 1.8 mg/dL (1.8-2.4); PHOSPHORUS 2.3 mg/dL (2.5-4.9)
[2017-05-31 05:54] LABS: ANION GAP 9.2 (8-16); CARBON DIOXIDE 24.8 mmol/L (21-32); CHLORIDE 115 mmol/L (98-107); CREATININE 1.1 mg/dL (0.6-1.3); GLUCOSE 186 mg/dL (74-106); SODIUM SERUM 145 mmol/L (136-145); UREA NITROGEN, BLOOD 23 mg/dL (7-18)
[2017-05-31 06:24] LABS: EOSINOPHILS % (MANUAL) 1 % (0-4); LYMPHOCYTES % (MANUAL) 6 % (20-46); MONOCYTES % (MANUAL) 8 % (5-12)
[2017-05-31] MEDS: INSULIN LISPRO SLIDING SCALE 100 UNITS/ML VIAL SUBQ PRN ×2 (06:32→20:57)
[2017-05-31] MEDS: PIPER/TAZO 3.375GM/D5W PREMIX 50 ML IV SCH ×4 (06:32→23:18)
[2017-05-31] MEDS: BLOOD GLUCOSE MONITORING 1 DEV DEV FS SCH ×4 (06:32→20:49)
[2017-05-31] MEDS: LEVOTHYROXINE 0.05 MG TAB PO SCH (06:32)
--- NOTE | 2017-05-31 06:48 | NUR ---
RECEIVED PT ON CARESCAPE ON PCV 15 RR 12 ITIME 1:2 FIO2 40 PEEP 8 ALARMS ARE ON AND FUNCTIONAL PT S ET TUBE SIZE 7.5 IS SECURE 24 CM ANCHOR FAST IN PLACE BMV HOB PT IN HF NOT AWAKE BS CL\DIM NO APPARENT DISTRESS HHN GIVEN I\L WITH 3MG DUONEB I\L SX SCANT YELLOW VENT PLUGGED INTO RED OUTLET Addendum: 05/31/17 at 0930 by Harleen Broussard RT [id number]
--- NOTE | 2017-05-31 07:20 | NUR ---
REPORT RECEIVED FROM [facility] SHIFT NURSE. PT RESTING IN BED COMFORTABLY. SINUS TACHY ON MONITOR. NO RESPIRATORY DISTRESS. SKIN DRY AND WARM TO TOUCH. ETT TO VENT WITH VENT SETTING AC FIO2 40%, RR 12, PEEP 8. BOTH PUPILS REACTIVE TO LIGHT. NG TUBE TO TUBE FEED IN PLACE. RIGHT IJ TRIPLE LUMEN CATH IN PLACE, INTACT, PATENT. LUNGS SOUND CLEAR ON AUSCULTATION. RIGHT FOREARM PERIPHERAL LINE 22G,INTACT. ABDOMEN SOFT AND NONTENDER. BOWEL SOUNDS PRESENT ON ALL FOUR QUADRANTS. GANNON'S CATH IN PLACE. SCD ON BLE. WILL CONTINUE TO MONITOR. Addendum: 05/31/17 at 1519 by Svetlana Tubbs RN ON ETT TO VENR WITH AC/PC MODE. CHARTED NG TUBE BUT PT HAS OGT TO TUBE FEED. PT ON VERSED DRIP AND MORPHIN DRIP.
--- NOTE | 2017-05-31 07:40 | NUR ---
DR. CHESTER AND RESIDENT GROUP IN TO SEE THE PT. WILL FOLLOW UP ON ORDER.
--- NOTE | 2017-05-31 09:05 | NUR ---
VENT CHECK BS CL\DIM CUFF 28CM H20
[2017-05-31] MEDS: LACTOBACILLUS RHAMNOSUS GG 1 EACH CAP PO SCH ×3 (09:11→18:09)
[2017-05-31] MEDS ORDERED: SODIUM PHOS / POTASSIUM PHOS 1 PKT PDR NG SCH (09:11)
[2017-05-31] MEDS: CALCIUM ACETATE 667 MG TAB PO SCH (09:11)
[2017-05-31] MEDS: amLODIPine 5 MG TAB PO SCH (09:12)
[2017-05-31] MEDS: PANTOPRAZOLE 40 MG INJ VIAL IVP SCH (09:12)
[2017-05-31] MEDS: DOCUSATE 100 MG/10 ML UDC GT SCH ×2 (09:12→20:50)
[2017-05-31] MEDS: ATORVASTATIN 20 MG TAB PO SCH (09:15)
[2017-05-31] MEDS: clonazePAM 0.5 MG TAB PO SCH ×4 (09:15→20:54)
[2017-05-31] MEDS: MIDAZOLAM MDV 100 MG in NACL 0.9% 80 ML IV PRN (09:22)
[2017-05-31] MEDS: DULoxetine 30 MG CAPDR PO SCH (09:23)
--- NOTE | 2017-05-31 09:30 | NUR ---
PT SLEEPING IN BED COMFORTABLY. MO ACUTE DISTRESS NOTED. WILL CONTINUE TO MONITOR.
[2017-05-31] MEDS: DEXT 5% /NACL 0.9% 1,000 ML IV SCH (10:01)
--- NOTE | 2017-05-31 10:09 | NUR ---
DR. HARTMANN IN TO SEE PT. WILL FOLLOW UP ON ORDERS.
[2017-05-31] MEDS: MORPHINE SULFATE 50 MG in NACL 0.9% 45 ML IV PRN (10:16)
--- NOTE | 2017-05-31 11:03 | NUR ---
VENT CHECK BS CL\DIM
--- NOTE | 2017-05-31 12:22 | NUR ---
SEEN BY DR. SANON. WILL FOLLOW UP ON ORDER.
--- NOTE | 2017-05-31 13:13 | NUR ---
PT SLEEPING IN BED. SINUS TACHYPNEA AND SINUS TACHY ON MONITOR. FAMILY AT BEDSIDE. PT ON CONTINUOUS MONITORING.
--- NOTE | 2017-05-31 13:30 | NUR ---
VENT CHECK BS CL\DIM I\L LAVAGE AND SX SCANT AMTS YELLOW DR SANON CHANGED VENT SETTINGS PRIOR
--- NOTE | 2017-05-31 14:02 | NUR ---
CHECKED TUBE FEEDING RESIDUAL: 45ML NOTED, RETURNED TO PT. ADMINISTERED MEDICATION ORDERED. PT TOLERATED WELL.
--- NOTE | 2017-05-31 15:13 | NUR ---
VENT CHECK BS CL\DIM ABG REPORTED TO DR SANON KEEP SAME VENT SETTINGS INCREASED FIO2 TO 50
--- NOTE | 2017-05-31 15:20 | NUR ---
PT RESTING IN BED. NO CHANGE IN LOC. WILL CONTINUE TO MONITOR.
--- NOTE | 2017-05-31 15:29 | NUR ---
05/31/17 RD FOLLOW UP COMPLETED PLEASE REFER TO NUTRITION ASSESSMENT UNDER CARE ACTIVITY FOR ESTIMATED NUTRITIONAL NEEDS. 1. RECOMMEND INCREASING NUTRITION SUPPORT NUTREN PULMONARY TO 45 ML/HR -THIS WILL PROVIDE 1620 KCAL, 73 GM PROTEIN TO [id number]% OF PT ESTIMATED KCAL AND PROTEIN NEEDS 2. SHOULD PT BE WEANED OFF OF VENTILATOR SUPPORT CONSIDER ADVANCING DIET BACK TO SOFT WITH BOOST TID 3. RD TO FOLLOW-UP 2-3 DAYS, HIGH RISK IMELDA CROCKETT RD
[2017-05-31] MEDS: ACETAMINOPHEN 325 MG TAB PO PRN (15:39)
--- NOTE | 2017-05-31 15:39 | NUR ---
PT HAS FEVER 100.2. EXTRA CLOTHES REMOVED, ICE PACK APPLIED. TAB TYLENOL 650 MG ADMINISTERED. Addendum: 05/31/17 at 1541 by Svetlana Tubbs RN WILL CONTINUE TO MONITOR.
--- NOTE | 2017-05-31 16:40 | NUR ---
BODY TEMPERATURE REDUCED TO 99.7. WILL CONTINUE TO MONITOR.
--- NOTE | 2017-05-31 18:22 | NUR ---
DR. LAI IN TO SEE PT. WILL FOLLOW UP ON ORDERS. Addendum: 05/31/17 at 1915 by Rosie Tovar RN CHARTED DR. LAI IN ERROR
--- NOTE | 2017-05-31 18:23 | NUR ---
DR. DILL IN TO SEE PT. WILL FOLLOW UP ON ORDERS.
--- NOTE | 2017-05-31 19:15 | NUR ---
REPORT GIVEN TO NOC SHIFT RN CLARIZE FOR CONTINUITY OF CARE. PT IN STABLE CONDITION.
--- NOTE | 2017-05-31 19:18 | NUR ---
RECEIVED REPORT FROM REGULO MORA. ININITIAL ASSESSMENT COMPLETED. PT IS SEDATED, ETT TO VENT FIO2 50% TV 500 AC 12 PEEP 5. ATTACHED TO PAPER PROCESSING MACHINE HELPER, PULSE OXIMETER. OGT IN PLACE, ON CONTINUOUS FEEDING. NO GASTRIC RESIDUAL AT THIS TIME. CENTRAL AT RIGHT IJ TLC, PATENT, INTACT. GANNON CATH IN PLACE, SCDS IN PLACE. BED IN LOW POSITION. SAFETY MEASURE ENSURE. WILL CONTINUE TO MONITOR. Addendum: 06/01/17 at 0617 by Clementina Kruse RN WITH MORPHINE PUMP AT RIGHT LOWER ABDOMEN.
--- NOTE | 2017-05-31 19:45 | NUR ---
RIGHT FOREARM 22G INFILTRATED. REMOVED, CATH INTACT, NO SIGNS OF BLEEDING, COVERED WITH GAUZE. WILL CONTINUE TO MONITOR.
[2017-05-31] MEDS: LISINOPRIL 10 MG TAB PO SCH (20:51)
[2017-06-01] VITALS (35 sets, daily range): BP systolic 116–154; BP diastolic 58–89
--- NOTE | 2017-06-01 | NUR ---
PT ASLEEP , NO SIGNS OF DISTRESS NOTED.
[2017-06-01] MEDS: ALBUTEROL SULFATE/IPRATROPIU 3 ML SOL IH SCH ×4 (00:50→19:40)
--- NOTE | 2017-06-01 04:30 | NUR ---
MORNING CARE DONE. PT TOLERATED WELL.
--- NOTE | 2017-06-01 04:44 | NUR ---
ABG DONE WITH NO INCIDENT. RESULTS GIVEN TO MD WARE.
[2017-06-01 05:29] LABS: HEMATOCRIT 29.6 % (36-48); HEMOGLOBIN 9.6 g/dL (12.0-16.0); MEAN CORPUSCULAR HEMOGLOBIN 31 pg (27-31); MEAN CORPUSCULAR HGB CONC 33 g/dL (33-37); MEAN CORPUSCULAR VOLUME 95 fL (80-94); PLATELET COUNT (AUTO) 190 K/uL (140-450); RED BLOOD CELL COUNT(AUTO) 3.11 MIL/uL (4.20-5.40); RED CELL DISTRIBUTION WIDTH 15.4 % (11.6-13.7); WHITE BLOOD COUNT (AUTO) 20.3 K/uL (4.8-10.8)
[2017-06-01 05:58] LABS: MAGNESIUM 1.7 mg/dL (1.8-2.4); PHOSPHORUS 3.4 mg/dL (2.5-4.9)
[2017-06-01 06:09] LABS: ANION GAP 8.9 (8-16); CARBON DIOXIDE 26.7 mmol/L (21-32); CHLORIDE 114 mmol/L (98-107); CREATININE 0.9 mg/dL (0.6-1.3); GLUCOSE 121 mg/dL (74-106); POTASSIUM 3.6 mmol/L (3.5-5.1); SODIUM SERUM 146 mmol/L (136-145); UREA NITROGEN, BLOOD 21 mg/dL (7-18)
[2017-06-01] MEDS: LEVOTHYROXINE 0.05 MG TAB PO SCH (06:29)
[2017-06-01] MEDS: PIPER/TAZO 3.375GM/D5W PREMIX 50 ML IV SCH ×2 (06:29→12:01)
[2017-06-01 06:38] LABS: LYMPHOCYTES % (MANUAL) 6 % (20-46); MONOCYTES % (MANUAL) 8 % (5-12)
[2017-06-01] MEDS: BLOOD GLUCOSE MONITORING 1 DEV DEV FS SCH ×4 (06:38→20:32)
[2017-06-01] MEDS: NACL 0.9% 1,000 ML IV SCH ×2 (06:56→17:37)
[2017-06-01] MEDS: MORPHINE SULFATE 50 MG in NACL 0.9% 45 ML IV PRN ×2 (06:58→22:13)
[2017-06-01] MEDS ORDERED: MAG SULF 2000 MG/WATER PREMIX 50 ML IV SCH (07:00)
--- NOTE | 2017-06-01 07:14 | NUR ---
RECEIVED PT ON VENT WITH SETTIINGS CHARTED BREATH SOUNDS PRESENT BILAT DIM CLEAR SXN PT WITH MIN AMT THIN WHITE SECS ETT SECURE AMBU BAG AT BEDSIDE VENT PLUGGED INTO RED OUTLET WILL CONTINUE TO MONITOR PT ON VENT
--- NOTE | 2017-06-01 07:30 | NUR ---
REPORT GIVEN TO REGULO QUINONES FOR CONTINUITY OF CARE.
--- NOTE | 2017-06-01 08:00 | NUR ---
INITIAL SHIFT ASSESSMENT DONE. AWAKE BUT DROWSY. C/O MODERATE BACK PAIN. MORPHINE DRIP INCREASE TO 2 MG/HR. ON VENTILATOR, TOLERATING CURRENT SETTINGS WELL. O2 SAT 94-97%. ST ON MONITOR. SBP IN 130'S. NO ECTOPY NOTED. ON TUBE FEEDING VIA OGT, TOLERATING WELL. RESIDUALS OF 5 ML ONLY. HOB ELEVATED. UPDATED OF PLAN OF CARE. WILL CONTINUE TO MONITOR.
[2017-06-01] MEDS: LACTOBACILLUS RHAMNOSUS GG 1 EACH CAP PO SCH ×3 (08:01→17:48)
[2017-06-01] MEDS: CALCIUM ACETATE 667 MG TAB PO SCH (08:01)
[2017-06-01] MEDS: MIDAZOLAM 2 MG/2 ML VIAL IV PRN (08:18)
--- NOTE | 2017-06-01 08:18 | NUR ---
DR BUENROSTRO IS IN THE ROOM. MD UPDATED OF STATUS. PATIENT BECOMES RESTLESS AT THIS TIME. GIVEN VERSED 2 MG IVP. NEW ORDER RECEIVE. WILL CONTINUE TO MONITOR.
--- NOTE | 2017-06-01 08:51 | NUR ---
STARTED ON VERSED DRIP AT 5 MG/HR. WILL CONTINUE TO MONITOR.
[2017-06-01] MEDS ORDERED: MIDAZOLAM MDV 50 MG in NACL 0.9% 40 ML IV PRN (09:00)
--- NOTE | 2017-06-01 09:00 | NUR ---
AND SON ARE IN THE ROOM. UPDATED OF STATUS AND PLAN OF CARE.
[2017-06-01] MEDS: clonazePAM 0.5 MG TAB PO SCH ×4 (09:06→20:41)
[2017-06-01] MEDS: PANTOPRAZOLE 40 MG INJ VIAL IVP SCH (09:07)
[2017-06-01] MEDS: ATORVASTATIN 20 MG TAB PO SCH (09:07)
[2017-06-01] MEDS: DOCUSATE 100 MG/10 ML UDC GT SCH ×2 (09:07→20:38)
[2017-06-01] MEDS: amLODIPine 5 MG TAB PO SCH (09:08)
[2017-06-01] MEDS: DULoxetine 30 MG CAPDR PO SCH (09:08)
[2017-06-01] MEDS: LEVOFLOXACIN 750 MG/D5W PREMIX 150 ML IV SCH (09:08)
--- NOTE | 2017-06-01 10:00 | NUR ---
RESTING IN BED. NO SIGNS OF PAIN. OCCASIONAL AGITATION NOTED. TOLERATING VENTILATOR FAIRLY. O2 SAT 90-92%. ST ON MONITOR. SBP IN 140'S-150'S. NO ECTOPY NOTED. HOB ELEVATED. WILL CONTINUE TO MONITOR.
--- NOTE | 2017-06-01 11:00 | NUR ---
DR DILL IS HERE. UPDATED OF STATUS. NO NEW ORDER RECEIVE.
--- NOTE | 2017-06-01 11:40 | NUR ---
INCREASED FIO2 TO .70 RN ELEMER AWARE
--- NOTE | 2017-06-01 12:00 | NUR ---
REASSESSMENT DONE. AWAKE AGAIN AT THIS TIME AND TRYING TO HOLD THE ETT. VERSED DRIP INCREASE TO 6 MG/HR. NO C/O PAIN. TOLERATING CURRENT VENTILATOR SETTINGS WELL. O2 SAT 94-95%. ST ON MONITOR. SBP IN 110'S-120'S. NO ECTOPY NOTED. TOLERATING TUBE FEEDING WELL. RESIDUALS OF 5 ML ONLY. HOB ELEVATED. UPDATED OF PLAN OF CARE. WILL CONTINUE TO MONITOR.
[2017-06-01] MEDS: INSULIN LISPRO SLIDING SCALE 100 UNITS/ML VIAL SUBQ PRN (12:23)
--- NOTE | 2017-06-01 13:17 | NUR ---
C/O BACK PAIN AGAIN AT THIS TIME. POLYETHYLENE COMBINER ABDULAZIZ INCREASE THE MORPHINE DRIP TO 3 MG/HR. WILL CONTINUE TO MONITOR.
[2017-06-01] MEDS ORDERED: MEROPENEM 500 MG in NACL 0.9% 50 ML IV SCH (13:40)
--- NOTE | 2017-06-01 13:50 | NUR ---
DR SANON IS IN THE ROOM. MD UPDATED OF STATUS. MD TALK TO THE PATIENT AND FAMILY. NEW ORDERS RECEIVE FROM MD.
--- NOTE | 2017-06-01 14:00 | NUR ---
RESTING IN BED WITH FAMILY AT BEDSIDE. NO C/O PAIN. OCCASIONAL AGITATION NOTED. TOLERATING VENTILATOR WELL. O2 SAT 91-96%. ST ON MONITOR. SBP IN 120'S-150'S. NO ECTOPY NOTED. TUBE FEEDING TURN OFF PER COAT MAKER IN PREPARATION FOR ULTRASOUND OF THE ABDOMEN. HOB ELEVATED. WILL CONTINUE TO MONITOR.
[2017-06-01 14:14] LABS: ALBUMIN 2.1 g/dL (3.4-5.0); BILIRUBIN,DIRECT 0.1 mg/dL (0.0-0.3); TOTAL BILIRUBIN 0.3 mg/dL (0.0-1.0)
--- NOTE | 2017-06-01 16:00 | NUR ---
REASSESSMENT DONE. NEURO STATUS UNCHANGED. NO SIGNS OF PAIN. OCCASIONAL AGITATION NOTED. TOLERATING CURRENT VENTILATOR SETTINGS WELL. O2 SAT 96-98%. ST ON MONITOR. SBP IN 120'S-130'S. NO ECTOPY NOTED. TUBE FEEDING STILL ON HOLD PER MINISTER HELPER ORDER TO HOLD THE TUBE FEEDING IN PREPARATION FOR ULTRASOUND OF THE ABDOMEN. HOB ELEVATED. UPDATED OF PLAN OF CARE. WILL CONTINUE TO MONITOR.
[2017-06-01] MEDS: MIDAZOLAM MDV 100 MG in NACL 0.9% 80 ML IV PRN (16:01)
--- NOTE | 2017-06-01 17:00 | NUR ---
TWO ULTRASOUND TECHNICIANS ARE IN THE ROOM TO DO ULTRASOUND OF THE ABDOMEN.
--- NOTE | 2017-06-01 17:33 | NUR ---
CONTINUED TO MONITOR PT ON VENT WITH SETTINGS CHARTED BREATH SOUNDS PRESENT BILAT DIMINISHED SXN PT WITH MIN AMT OFF WHITE SECS THIN ABU BAG AT BEDSIDE VENT PLUGGED INTO RED OUTLET DECREASED FIO2 TO .60 RN AWARE
--- NOTE | 2017-06-01 18:00 | NUR ---
RESTING IN BED. NO SIGNS OF PAIN. OCCASIONAL AGITATION NOTED. TOLERATING VENTILATOR WELL. O2 SAT 96-97%. ST ON MONITOR. SBP IN 130'S. NO ECTOPY NOTED. TUBE FEEDING RESTARTED AT THIS TIME. HOB ELEVATED. WILL CONTINUE TO MONITOR.
--- NOTE | 2017-06-01 19:15 | NUR ---
REPORT GIVEN TO INCOMING ETHICS MANAGER RN, RN DANIELITO.
--- NOTE | 2017-06-01 19:30 | NUR ---
RECEIVED REPORT FROM JONI.RN. PT SEDATED WITH VERSED, MORPHINE DRIPS RASS -4. ETT TO VENT WITH SETTING A/C MODE RATE 14, FIO2 60, VT 400, PEEP +5. ON TUBE FEEDING VIA OGTUBE NUTREN PULMONARY 45ML/HR, H2O 50ML Q4HR. BILATERAL RHONCHI LUNG SOUND NOTED. CENTRAL LINE TO RIGHT INTERNAL JUGURAL WITH NS 90ML/HR, VERSED 6MG/HR AND MORPHINE 3MG/HR. GANNON CATH IN PLACE DRAINING CLEAR AND YELLOW URINE. BLE SKIN DISCOLORATION NOTED. ST ON THE MEMS PROCESS ENGINEER, HOB ELEVATED. CONTINUE TO MONITOR.
--- NOTE | 2017-06-01 19:40 | NUR ---
[facility]. PT QUIET, HAS A #7.5 ETT SECURED AT 24 LIP LINE WITH AN ANCHOR FAST. BREATH SOUNDS DIMINISHED BILATERALLY. HHN GIVEN VIA INLINE ORDERED. PT LAVAGED AND SUCTIONED SMALL AMOUNT THIN WHITE SECRETIONS. NO ADVERSE EFFECTS NOTED. VENT ALARMS ON AND AUDIBLE. VENT PLUGGED INTO RED ELECTRICAL OUTLET. AMBU BAG AT [facility].
[2017-06-01] MEDS ORDERED: VANCOMYCIN PER PHARMACY MC PRN (20:30)
[2017-06-01] MEDS: PIPER/TAZO 2.25GM/D5W PREMIX 50 ML IV SCH (20:38)
[2017-06-01] MEDS: LISINOPRIL 10 MG TAB PO SCH (20:39)
--- NOTE | 2017-06-01 21:00 | NUR ---
GIVEN IV ABX ZOSYN, TOLERATED WELL. BS CHECKED 105, NO COVERAGE NEEDED. HOLD KLONOPIN 1MG D/T PT ON VERSED DRIP, DR. WARE AWARE. PT SEDATED RASS -4 WITH MORPHINE, VERSED DRIPS. CONTINUE TO MONITOR.
[2017-06-01] MEDS: VANCOMYCIN HCL 750 MG in DEXTROSE 5% 250 ML IV SCH (21:55)
--- NOTE | 2017-06-01 22:10 | NUR ---
HERE TO CHECK THE PT AT BEDSIDE, WILL FOLLOW THE ORDER. PT SEDATED RASS -4 WITH MORPHINE AND VERSED DRIPS. NO ACUTE DISTRESS NOTED. WILL CONTINUE TO MONITOR.
[2017-06-01] MEDS ORDERED: VANCOMYCIN 1,000 MG VIAL ONE (22:22)
[2017-06-02] VITALS (40 sets, daily range): BP systolic 98–144; BP diastolic 52–92
--- NOTE | 2017-06-02 00:20 | NUR ---
PT SEDATED RASS -4 WITH MORPHINE, VERSED DRIPS. NO ACUTE RESPIRATORY DISTRESS NOTED. ST ON THE MONITOR. WILL CONTINUE TO MONITOR.
[2017-06-02] MEDS: ALBUTEROL SULFATE/IPRATROPIU 3 ML SOL IH SCH ×4 (01:29→18:13)
[2017-06-02] MEDS: NACL 0.9% 1,000 ML IV SCH ×2 (01:55→13:03)
--- NOTE | 2017-06-02 02:00 | NUR ---
PT SEDATED RASS -4 WITH MORPHINE, VERSED DRIPS. NO ACUTE RESPIRATORY DISTRESS NOTED. REMOVED BILATERAL SOFT WRIST RESTRAINTS AT THIS TIME D/T PT SEDATED RASS -4 WITH NO BEHAVIOR NOTED. CONTINUE TO MONITOR.
--- NOTE | 2017-06-02 04:00 | NUR ---
PT SEDATED RASS -4 WITH MORPHINE, VERSED DRIPS. NO ACUTE DISTRESS NOTED. CONTINUE TO MONITOR.
--- NOTE | 2017-06-02 04:30 | NUR ---
ROOM CHANGED TO ICU BED 8 D/T SPUTUM CULTURE RESULTS IN MRSA IN SPUTUM. CONTACT ISOLATION INITIATED.
[2017-06-02 04:59] LABS: HEMATOCRIT 32.2 % (36-48); HEMOGLOBIN 10.6 g/dL (12.0-16.0); MEAN CORPUSCULAR HEMOGLOBIN 31 pg (27-31); MEAN CORPUSCULAR HGB CONC 33 g/dL (33-37); MEAN CORPUSCULAR VOLUME 96 fL (80-94); PLATELET COUNT (AUTO) 188 K/uL (140-450); RED BLOOD CELL COUNT(AUTO) 3.37 MIL/uL (4.20-5.40); RED CELL DISTRIBUTION WIDTH 15.1 % (11.6-13.7); WHITE BLOOD COUNT (AUTO) 19.5 K/uL (4.8-10.8)
[2017-06-02] MEDS: PIPER/TAZO 2.25GM/D5W PREMIX 50 ML IV SCH ×3 (05:13→20:27)
[2017-06-02] MEDS: LEVOTHYROXINE 0.05 MG TAB PO SCH (06:00)
--- NOTE | 2017-06-02 06:00 | NUR ---
AT BEDSIDE TO CHECK PT, WILL FOLLOW THE ORDER. HEART RATE ON 130 TO 135 NOTED, NOTIFIED TO . PT SEDATED WITH MORPHINE, VERSED DEMETRIA RASS -4. NO ACUTE RESPIRATORY DISTRESS NOTED. CONTINUE TO MONITOR.
[2017-06-02 06:11] LABS: MAGNESIUM 1.8 mg/dL (1.8-2.4); PHOSPHORUS 3.3 mg/dL (2.5-4.9)
[2017-06-02 06:18] LABS: ANION GAP 8.5 (8-16); CARBON DIOXIDE 27.8 mmol/L (21-32); CHLORIDE 110 mmol/L (98-107); CREATININE 0.7 mg/dL (0.6-1.3); GLUCOSE 113 mg/dL (74-106); POTASSIUM 3.3 mmol/L (3.5-5.1); SODIUM SERUM 143 mmol/L (136-145); UREA NITROGEN, BLOOD 15 mg/dL (7-18)
[2017-06-02 06:41] LABS: LYMPHOCYTES % (MANUAL) 5 % (20-46); MONOCYTES % (MANUAL) 11 % (5-12)
[2017-06-02 06:42] LABS: EOSINOPHILS % (MANUAL) 2 % (0-4)
--- NOTE | 2017-06-02 07:00 | NUR ---
PATIENT'S HR STILL MORE THAN 130/MIN RANGING FROM 132-138/MIN; REFERRED AGAIN TO DR. LARIOS.
--- NOTE | 2017-06-02 07:10 | NUR ---
REPORT GIVEN TO GODWIN. FOR CONTINUITY OF CARE.
[2017-06-02] MEDS: BLOOD GLUCOSE MONITORING 1 DEV DEV FS SCH ×4 (07:31→20:27)
[2017-06-02] MEDS: LACTOBACILLUS RHAMNOSUS GG 1 EACH CAP PO SCH ×2 (07:52→12:08)
[2017-06-02] MEDS: CALCIUM ACETATE 667 MG TAB PO SCH (07:53)
--- NOTE | 2017-06-02 08:00 | NUR ---
INITIAL SHIFT ASSESSMENT DONE. SEDATED WITH VERSED AND MORPHINE DRIP, TOLERATING WELL. NO SIGNS OF PAIN OR AGITATION NOTED. ON VENTILATOR, TOLERATING CURRENT SETTINGS WELL. O2 SAT 92-95%. ST ON MONITOR. SBP IN 130'S. NO ECTOPY NOTED. ON TUBE FEEDING, TOLERATING WELL. NO RESIDUALS NOTED. HOB ELEVATED. UPDATED OF PLAN OF CARE. WILL CONTINUE TO MONITOR.
[2017-06-02] MEDS: DOCUSATE 100 MG/10 ML UDC GT SCH ×2 (08:54→20:28)
[2017-06-02] MEDS: ATORVASTATIN 20 MG TAB PO SCH (08:54)
[2017-06-02] MEDS: PANTOPRAZOLE 40 MG INJ VIAL IVP SCH (08:54)
[2017-06-02] MEDS: amLODIPine 5 MG TAB PO SCH (08:55)
[2017-06-02] MEDS: DULoxetine 30 MG CAPDR PO SCH (08:55)
[2017-06-02] MEDS: clonazePAM 0.5 MG TAB PO SCH ×4 (08:56→20:30)
[2017-06-02] MEDS ORDERED: CHLORHEXADINE GLUC 2% CLOTH TP SCH (09:00)
[2017-06-02] MEDS ORDERED: MUPIROCIN 2% OINT 22 GM TUBE TP SCH (09:00)
--- NOTE | 2017-06-02 09:15 | NUR ---
SON AND ARE IN THE ROOM. UPDATED OF STATUS AND PLAN OF CARE.
[2017-06-02] MEDS ORDERED: LIDOCAINE IV SCH (09:30)
[2017-06-02] MEDS ORDERED: DEXTROSE 5% IV SCH (09:30)
[2017-06-02] MEDS ORDERED: POTASSIUM CHLORIDE IV SCH (09:30)
--- NOTE | 2017-06-02 10:00 | NUR ---
RESTING IN BED WITH FAMILY AT BEDSIDE. NO SIGNS OF PAIN OR AGITATION NOTED. TOLERATING VENTILATOR WELL. O2 SAT 91-93%. ST ON MONITOR. SBP IN 120'S-130'S. NO ECTOPY NOTED. HOB ELEVATED. WILL CONTINUE TO MONITOR.
--- NOTE | 2017-06-02 10:10 | NUR ---
DR SANON IS IN THE ROOM. UPDATED OF STATUS. MD TALK TO THE FAMILY.
[2017-06-02] MEDS: MIDAZOLAM MDV 100 MG in NACL 0.9% 80 ML IV PRN (10:17)
--- NOTE | 2017-06-02 12:00 | NUR ---
REASSESSMENT DONE. NEURO STATUS STILL THE SAME. NO SIGNS OF PAIN OR AGITATION NOTED. TOLERATING CURRENT VENTILATOR SETTINGS FAIRLY. O2 SAT 90-93%. ST ON MONITOR. SBP IN 120'S-130'S. NO ECTOPY NOTED. HOB ELEVATED. TOLERATING TUBE FEEDING WELL. NO RESIDUALS NOTED. HOB ELEVATED. UPDATED OF PLAN OF CARE. WILL CONTINUE TO MONITOR.
--- NOTE | 2017-06-02 12:20 | NUR ---
INCREASED PT FIO2 TO 80% DUE TO DECREASE IN SPO2. RN AWARE
--- NOTE | 2017-06-02 12:28 | NUR ---
INCREASED FIO2 TO 100% DUE TO DECREASE IN SOP2. RN JONI AWARE.
--- NOTE | 2017-06-02 14:00 | NUR ---
RESTING IN BED. NO SIGNS OF PAIN OR AGITATION NOTED. TOLERATING VENTILATOR FAIRLY. O2 SAT 92-94%. ST ON MONITOR. SBP IN 120'S-130'S. NO ECTOPY NOTED. HOB ELEVATED. WILL CONTINUE TO MONITOR.
--- NOTE | 2017-06-02 14:30 | NUR ---
DR DILL CALL BACK AT THIS TIME. UPDATED OF STATUS. NEW ORDER RECEIVE.
[2017-06-02] MEDS ORDERED: METOPROLOL 25 MG TAB PO SCH ×3 (14:39→18:00)
--- NOTE | 2017-06-02 15:10 | NUR ---
SON AND ARE IN THE ROOM AGAIN. UPDATED OF STATUS AND PLAN OF CARE.
--- NOTE | 2017-06-02 16:00 | NUR ---
REASSESSMENT DONE. NEURO STATUS UNCHANGED. NO SIGNS OF PAIN OR AGITATION NOTED. TOLERATING CURRENT VENTILATOR SETTINGS FAIRLY. O2 SAT 94-95%. ST ON MONITOR. SBP IN 100'S-110'S. NO ECTOPY NOTED. TOLERATING TUBE FEEDING FAIRLY. RESIDUALS OF 30 ML. HOB ELEVATED. FAMILY AT BEDSIDE. UPDATED OF PLAN OF CARE. WILL CONTINUE TO MONITOR.
--- NOTE | 2017-06-02 16:30 | NUR ---
DR DILL IS IN THE ROOM. MD TALK TO THE FAMILY. MD UPDATED OF STATUS. NEW ORDERS RECEIVE.
[2017-06-02] MEDS: MORPHINE SULFATE 50 MG in NACL 0.9% 45 ML IV PRN (17:13)
--- NOTE | 2017-06-02 17:30 | NUR ---
GIVEN PARTIAL BATH AND LINENS ARE CHANGE. TOLERATED THE PROCEDURE WELL.
--- NOTE | 2017-06-02 18:00 | NUR ---
RESTING IN BED. NO SIGNS OF PAIN OR AGITATION NOTED. TOLERATING VENTILATOR WELL. O2 SAT 92-97%. SR ON MONITOR. SBP IN 90'S-100'S. NO ECTOPY NOTED. HOB ELEVATED. WILL CONTINUE TO MONITOR.
--- NOTE | 2017-06-02 19:20 | NUR ---
REPORT GIVEN TO INCOMING SHIPPING ROOM SUPERVISOR RN, RN ELENI.
--- NOTE | 2017-06-02 19:30 | NUR ---
CLARIFICATION TUBE FEEDING IS NUTREN PULMONARY AT 45 CC/HR AND H20 AT 50 CC/HR
--- NOTE | 2017-06-02 19:30 | NUR ---
RECEIVED PT FROM AM SHIFT . PT IS SEDATED. PT IS ETT TO VENT , NO S/S OF RESP.DISTRESS NO SOB. RHONCHI TO CARLENE LUNGS.VENT SETTING AC 12,VT 400,FIO2 80% AND PEEP 5. SPO2 95%. CENTRAL LINE TO RIGHT INTERNAL JUGULAR TRIPLE LUMENS.INTACT AND GOOD BLOOD RETURN NOTED. CONT ON VERSED AND MORPHINE DRIPS.CONT ON IV NS AT 90 CC/HR JASON WELL.CONT ON IV ABT VANCOMYCIN AND ZOSYN ORDER. OGT TO TUBE FEEDING. FIBERSOURCE HN AT 45 CC/HR AND H20 AT 50 CC/HR WITH 10 CC RESIDUAL NOTED. ABD SOFT NON DISTENDED. POSITIVE BOWEL SOUNDS TO ALL QUADRANTS.PT ABLE TO OPEN EYES SPONTANEOUSLY WHEN CALL HER NAME AND TO LIGHT PAIN.SR TO MONITOR. 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 EDEMA TO BUE +2 NON PITTING.ELEVATED AREAS WITH PILLOWS.F/C IN PLACE WITH YELLOW CLEAR URINE.GENTLE CARE GIVEN.KEPT CLEAN AND DRY.
[2017-06-02] MEDS: VANCOMYCIN HCL 750 MG in DEXTROSE 5% 250 ML IV SCH (20:27)
[2017-06-02] MEDS: METOPROLOL 25 MG TAB PO SCH (20:28)
[2017-06-02] MEDS: LISINOPRIL 10 MG TAB PO SCH (20:32)
--- NOTE | 2017-06-02 21:00 | NUR ---
BLOOD SUGAR 149,NO INSULIN COVERAGE NEEDED. NIGHT MEDS GIVEN JASON WELL.
--- NOTE | 2017-06-02 21:30 | NUR ---
COME TO SEE PT. NO NEW ORDER AT THIS TIME.
--- NOTE | 2017-06-02 23:30 | NUR ---
NO FEVER. T.98.1. CONTINUE ON SEDATION JASON WELL.
[2017-06-03] VITALS (97 sets, daily range): BP systolic 67–125; BP diastolic 35–79
[2017-06-03] MEDS: ALBUTEROL SULFATE/IPRATROPIU 3 ML SOL IH SCH ×4 (00:21→19:35)
--- NOTE | 2017-06-03 00:39 | NUR ---
PATIENT DESATURATION TO 88%. BS ARE CLEAR W/ GOOD AIR ENTRY, HHN TREATMENT GIVEN SUCTIONED PT AND NOTHING IN RETURN. PLACED ON AC 12 VT 400 FIO2 100 PEEP +7. SAO2 INCREASED TO 94% AND RECOMMEND TO DOCTOR TO ORDER CHEST X-RAY
--- NOTE | 2017-06-03 00:50 | NUR ---
PT HAS EPISODE OF O2 SAT DOWN TO 88%. SUCTION GIVEN AND BREATHE SOUNDS BILATERALLY CLEAR. GOOD AIR ENTRY.BREATHING TX WAS GIVEN BY RT. VENT SETTING CHANGE TO AC 12 FIO2 100% TV 400 PEEP 7 . O2 SAT INCREASE TO 94 % PER RT RECOMMENDATION TO DO CHEST X-RAY. DR MORGAN WARE MADE AWARE. NEW ORDER GIVEN TO DO CHEST X-RAY.
--- NOTE | 2017-06-03 02:00 | NUR ---
PT CONTINUE ETT TO VENT CON WITH VENT SETTING AC 12.TV 400 AND FIO2 1005. PEEP 5.SPO2 96%.CONTINUE TO MONITOR
[2017-06-03] MEDS: NACL 0.9% 1,000 ML IV SCH ×2 (03:09→15:07)
[2017-06-03] MEDS: MIDAZOLAM MDV 100 MG in NACL 0.9% 80 ML IV PRN (03:11)
--- NOTE | 2017-06-03 03:30 | NUR ---
PT HAS EPISODE OF DESATURATION. TO 82 % WITH TACHYPNEA . RT AT BED SIDE. SUCTION WAS GIVEN. PT WAS REPOSITION. CONTINUE ON MORPHINE AND VERSED DRIPS .CLOSE MONITORING.
[2017-06-03] MEDS ORDERED: PROPOFOL 200 MG/20 ML VIAL IV ONE (03:50)
[2017-06-03] MEDS: MIDAZOLAM 2 MG/2 ML VIAL IV PRN (03:54)
[2017-06-03] MEDS ORDERED: PROPOFOL 1000 MG/100 ML PREMIX 100 ML IV ONE (04:11)
[2017-06-03] MEDS: PIPER/TAZO 2.25GM/D5W PREMIX 50 ML IV SCH ×3 (04:18→20:10)
[2017-06-03] MEDS: METOPROLOL 25 MG TAB PO SCH ×3 (04:18→20:12)
--- NOTE | 2017-06-03 05:00 | NUR ---
PEEP BACK TO 5 AND CONTINUE WITH 100 % FIO2.
[2017-06-03 05:08] LABS: HEMOGLOBIN 9.9 g/dL (12.0-16.0); MEAN CORPUSCULAR HEMOGLOBIN 31 pg (27-31); MEAN CORPUSCULAR HGB CONC 32 g/dL (33-37); MEAN CORPUSCULAR VOLUME 96 fL (80-94); PLATELET COUNT (AUTO) 187 K/uL (140-450); RED BLOOD CELL COUNT(AUTO) 3.24 MIL/uL (4.20-5.40); RED CELL DISTRIBUTION WIDTH 14.7 % (11.6-13.7); WHITE BLOOD COUNT (AUTO) 23.9 K/uL (4.8-10.8)
[2017-06-03] MEDS: PROPOFOL 1000 MG/100 ML PREMIX 100 ML IV PRN ×2 (05:42→05:59)
[2017-06-03 05:54] LABS: ANION GAP 9.1 (8-16); CARBON DIOXIDE 26.6 mmol/L (21-32); CHLORIDE 110 mmol/L (98-107); CREATININE 0.7 mg/dL (0.6-1.3); GLUCOSE 136 mg/dL (74-106); POTASSIUM 3.7 mmol/L (3.5-5.1); SODIUM SERUM 142 mmol/L (136-145); UREA NITROGEN, BLOOD 17 mg/dL (7-18)
[2017-06-03 05:55] LABS: MAGNESIUM 1.7 mg/dL (1.8-2.4); PHOSPHORUS 3.1 mg/dL (2.5-4.9)
--- NOTE | 2017-06-03 05:59 | NUR ---
AT 0336 PT HAS EPISODE OF DESATURATION, O2 SAT DROPS TO 80%, HR 117,BP117/74,RR 36X/MIN. VENT SETTING AC TV 1 Addendum: 06/03/17 at 0614 by Ashley Carlos RN AT 0336 PT HAS EPISODE OF DESATURATION.O2 SAT DROP TO 80%. WITH VENT SETTING AC 12 TV 400 FI0O2 100 % AND PEEP OF 5. SUCTION PT NO RETURN NOTED. PT FIGHT THE VENTILATOR. RT AT BED SIDE INCREASE PEEP TO 7. MORPHINE AND VERSED STOP. PT STILL WITH INCREASE RR TO 40-48X/MINT AT 3;40 RESTART THE MORPHINE AND VERSED INCREASE TO 7 MG/HR. DR MORGAN LANE AWARE. NEW ORDER TO DO STAT CHEST X-RAY AND STAT ABG. AT 0405 GIVE 2 MG VERSED IVP. AND D/C THE VERSED. CHANGE TO PROFOPOL. PROFOPOL START AT 0405 AT 5 MCG/KG/MIN. WITH RASS -2 THE GOAL IS RASS -4. AT 0415 INCREASE THE PROFOPOL TO 10 MCG RASS STILL -2. AT 0425 PROFOPOL INCREASE TO 15 MCG/KG/MIN TO REACH GOAL OF RASS -4. AND TOLERATED WELL.AT O500 BP DROP TO 74/45 DECREASE THE PROFOPOL TO 10 MCG/KG/MIN. AT 0515 BP STILL DOWN AT 75/49 DECREASE PROFOPOL TO 5 MCG/KG/MIN. JASON WELL AT 5:24 BP INCREASE TO 87/49. RASS -4. CONTINUE TO MONITOR CLOSELY.
--- NOTE | 2017-06-03 06:14 | NUR ---
AM CARE GIVEN JASON WELL. PT IS SEDATED RASS -4.
[2017-06-03] MEDS ORDERED: BISACODYL 10 MG SUPP RC ONE (06:15)
--- NOTE | 2017-06-03 06:30 | NUR ---
PT REST WELL AT THIS TIME. NO TACHYPNEA,CONTINUE ON PROFOPOL 5 MCG/KG/MIN JASON WELL RASS -4.
[2017-06-03] MEDS: LEVOTHYROXINE 0.05 MG TAB PO SCH (06:35)
[2017-06-03 06:40] LABS: LYMPHOCYTES % (MANUAL) 9 % (20-46)
[2017-06-03 06:41] LABS: EOSINOPHILS % (MANUAL) 2 % (0-4); MONOCYTES % (MANUAL) 2 % (5-12)
--- NOTE | 2017-06-03 06:45 | NUR ---
PT NO BM YET NEW ORDER TO GIVE DULCOLAX SUPP. MED GIVEN TO PT. WILL ENDORSE TO NEXT SHIFT TO FOLLOW UP.
--- NOTE | 2017-06-03 07:15 | NUR ---
REPORT GIVEN TO AM SHIFT PT IS CONT ON SEDATED. FIO2 CHANGE TO 80% TOLERATED WELL. BLOOD SUGAR IS 114. CONT TO MONITOR CLOSELY.
[2017-06-03] MEDS: BLOOD GLUCOSE MONITORING 1 DEV DEV FS SCH ×4 (07:44→20:27)
[2017-06-03] MEDS ORDERED: FUROSEMIDE 40 MG/4 ML VIAL IVP SCH (08:00)
--- NOTE | 2017-06-03 08:00 | NUR ---
INITIAL SHIFT ASSESSMENT DONE. SEDATED BUT AROUSABLE TO NAME CALLING. NO SIGNS OF PAIN OR AGITATION NOTED. ON VENTILATOR, TOLERATING CURRENT SETTINGS WELL. O2 SAT 97-100%. ST WITH OCCASIONAL PVC'S ON MONITOR. SBP IN 100'S-110'S. ON TUBE FEEDING, TOLERATING WELL. RESIDUALS OF 20 ML ONLY. HOB ELEVATED. UPDATED OF PLAN OF CARE. WILL CONTINUE TO MONITOR.
[2017-06-03] MEDS: CALCIUM ACETATE 667 MG TAB PO SCH (08:08)
--- NOTE | 2017-06-03 08:20 | NUR ---
TWO XRAY TECHNICIANS ARE IN THE ROOM TO DO KUB XRAY PER MD ORDER. WILL CONTINUE TO MONITOR.
--- NOTE | 2017-06-03 08:30 | NUR ---
O2 SAT IN 80'S AFTER XRAY WERE TAKEN. CALLED RT TO SEE THE PATIENT.
--- NOTE | 2017-06-03 09:00 | NUR ---
RT PUT PATIENT BACK TO 100% FIO2. WILL CONTINUE TO MONITOR.
[2017-06-03] MEDS ORDERED: MAG SULF 2000 MG/WATER PREMIX 50 ML IV ONE (09:10)
[2017-06-03] MEDS: ATORVASTATIN 20 MG TAB PO SCH (09:16)
[2017-06-03] MEDS: LACTOBACILLUS RHAMNOSUS GG 1 EACH CAP PO SCH (09:16)
[2017-06-03] MEDS: clonazePAM 0.5 MG TAB PO SCH ×4 (09:17→20:14)
[2017-06-03] MEDS: PANTOPRAZOLE 40 MG INJ VIAL IVP SCH (09:17)
[2017-06-03] MEDS: DOCUSATE 100 MG/10 ML UDC GT SCH ×2 (09:18→20:11)
[2017-06-03] MEDS: DULoxetine 30 MG CAPDR PO SCH (09:18)
[2017-06-03] MEDS: amLODIPine 5 MG TAB PO SCH (09:18)
--- NOTE | 2017-06-03 09:40 | NUR ---
SON AND ARE IN THE ROOM. UPDATED OF STATUS AND PLAN OF CARE.
--- NOTE | 2017-06-03 10:00 | NUR ---
DR SANON IS IN THE ROOM. MD UPDATED OF STATUS. MD TALK TO THE SON AND . NEW ORDERS RECEIVE. NO SIGNS OF PAIN OR AGITATION. TOLERATING VENTILATOR POORLY. O2 SAT IN 80'S. ST WITH OCCASIONAL PVC'S ON MONITOR. SBP IN 100'S-120. HOB ELEVATED. TUBE FEEDING TURN OFF PER MD ORDER IN PREPARATION FOR CT OF THE ABDOMEN. WILL CONTINUE TO MONITOR.
[2017-06-03] MEDS ORDERED: methylPREDNISolone SS 40 MG/ML VIAL IVP SCH (10:14)
[2017-06-03 10:17] LABS: ALBUMIN 1.7 g/dL (3.4-5.0); BILIRUBIN,DIRECT 0.1 mg/dL (0.0-0.3); TOTAL BILIRUBIN 0.3 mg/dL (0.0-1.0)
--- NOTE | 2017-06-03 11:13 | NUR ---
INCREASED FIO2 TO 100% AND PEEP TO 10. PT SPO2 IS STILL IN 80'S. DR SANON AWARE. NO NEW ORDERS. FAMILY AT BEDSIDE.
--- NOTE | 2017-06-03 11:19 | NUR ---
HR IN 140'S. AROUABLE TO NAME CALLING. PROPOFOL DRIP INCREASE TO 10 MCG/KG/MIN. FAMILY AT BEDSIDE. WILL CONTINUE TO MONITOR.
--- NOTE | 2017-06-03 11:45 | NUR ---
SON WAS ABLE TO TAKE OUT THE RING ON EACH RING FINGER. EXTRUDER OPERATOR MULTIPLE TUTU SILVERMAN.
--- NOTE | 2017-06-03 12:00 | NUR ---
REASSESSMENT DONE. NEURO STATUS UNCHANGED. NO SIGNS OF PAIN OR AGITATION NOTED. TOLERATING CURRENT VENTILATOR SETTINGS POORLY. O2 SAT IN HIGH 80'S-92%. ST WITH OCCASIONAL PVC'S ON MONITOR. SBP IN 90'S-110. NO ECTOPY NOTED. TUBE FEEDING STILL ON HOLD, FOR CT OF THE ABDOMEN. HOB ELEVATED. SON AND STILL AT BEDSIDE. UPDATED OF PLAN OF CARE. WILL CONTINUE TO MONITOR.
[2017-06-03] MEDS: MORPHINE SULFATE 50 MG in NACL 0.9% 45 ML IV PRN (12:47)
--- NOTE | 2017-06-03 14:00 | NUR ---
SLEEPING COMFORTABLY. NO SIGNS OF PAIN OR AGITATION NOTED. TOLERATING VENTILATOR FAIRLY. O2 SAT 92-95%. ST ON MONITOR. SBP IN 89-100'S. NO ECTOPY NOTED. HOB ELEVATED. WILL CONTINUE TO MONITOR.
--- NOTE | 2017-06-03 14:45 | NUR ---
06/03/17 RD FOLLOW UP COMPLETED PLEASE REFER TO NUTRITION ASSESSMENT UNDER CARE ACTIVITY FOR ESTIMATED NUTRITIONAL NEEDS. 1. AFTER PATIENT RECEIVES CT ABDOMEN, CONTINUE NUTRITION SUPPORT: NUTREN PULMONARY AT 45 ML/HR -THIS MEETS 100% OF PT ESTIMATED KCAL AND PROTEIN NEEDS -PATIENT TOLERATING TUBE FEEDINGS WELL PER RN 2. SHOULD PT BE WEANED OFF OF VENTILATOR SUPPORT CONSIDER ADVANCING DIET BACK TO SOFT WITH BOOST TID 3. RD TO FOLLOW-UP 2-3 DAYS, HIGH RISK IMELDA CROCKETT RD
--- NOTE | 2017-06-03 14:45 | NUR ---
SBP IN 80'S. MAP ABOVE 65. PROPOFOL DRIP DECREASE TO 5 MCG/KG/MIN. TUBE FEEDING IS RESTARTED AT THIS TIME. DIGITAL CONTENT MANAGER CALLED THE UNIT AND INFORM THE HEALTHCARE PROJECT MANAGER THAT THEY CANNOT DO CT SCAN OF THE ABDOMEN.
--- NOTE | 2017-06-03 14:55 | NUR ---
ENROLLMENT MANAGEMENT VICE PRESIDENT IS IN THE ROOM TO DO ULTRASOUND OF BOTH LOWER EXTREMITIES TO RULE OUT DVT.
--- NOTE | 2017-06-03 15:15 | NUR ---
SON AND ARE IN THE ROOM AGAIN. UPDATED OF STATUS AND PLAN OF CARE.
--- NOTE | 2017-06-03 16:00 | NUR ---
REASSESSMENT DONE. SLEEPING COMFORTABLY WITH RASS -4. NO SIGNS OF PAIN OR AGITATION NOTED. TOLERATING CURRENT VENTILATOR SETTINGS FAIRLY. O2 SAT 95-96%. ST ON MONITOR. SBP IN 90'S. NO ECTOPY NOTED. TOLERATING TUBE FEEDING WELL. NO RESIDUALS NOTED. HOB ELEVATED. SON AND ARE STILL IN THE ROOM. UPDATED OF PLAN OF CARE. WILL CONTINUE TO MONITOR.
--- NOTE | 2017-06-03 16:30 | NUR ---
DR DILL IS IN THE ROOM. MD UPDATED OF STATUS. MD TALK TO THE FAMILY. NO NEW ORDER RECEIVE.
[2017-06-03] MEDS: INSULIN LISPRO SLIDING SCALE 100 UNITS/ML VIAL SUBQ PRN ×2 (17:03→20:28)
--- NOTE | 2017-06-03 18:00 | NUR ---
RESTING COMFORTABLY. NO SIGNS OF PAIN OR AGITATION NOTED. TOLERATING VENTILATOR WELL. O2 SAT 96-97%. ST ON MONITOR. SBP IN 90'S-100'S. NO ECTOPY NOTED. HOB ELEVATED. WILL CONTINUE TO MONITOR.
--- NOTE | 2017-06-03 19:20 | NUR ---
REPORT GIVEN TO INCOMING PETROLEUM ENGINEERING TEACHER RN, RN ELENI.
--- NOTE | 2017-06-03 19:30 | NUR ---
RECEIVED PT FROM URI QUINONES RN. PT IS SEDATED RASS -4 CONTINOUS ON MORPHINE DRIPS AT 3 MG/HR AND PROPOFOL AT 5 MCG/KG/MIN TOLERATED WELL. NO AGITATION NOTED. CONT ON ETT TO VENT WITH VENT SETTING AV 12,TV 400, FIO2 100% AND PEEP OF 10. BILATERAL LUNGS SOUND COARSE. SUCTION AND BREATHING TX GIVEN. RT AT BED SIDE. HOB UP 30-45 DEGREE ALL THE TIMES.SINUS TACHY ON MONITOR. CONT ON CONTACT ISOLATION.CENTRAL LINE TO RIGHT INTRA JUGULAR TRIPLE LUMEN. INTACT WELL WITH GOOD BLOOD RETURN. NO S/S OF INFECTION ON THE SITE. CONT ON IV NS AT 75 CC/HR AND ABT ZOSYN AND VANCO ORDER.SKIN WARM TO TOUCH. OGT TO TUBE FEEDING. NUTREN PULMONARY AT 45 CC/HR AND WATER FLUSH ORDER. ABD SOFT NON DISTENDED.ACTIVE BOWEL SOUNDS TO ALL QUADRANT.F/C IN PLACE WITH YELLOW CLEAR COLOR. SCD IN BLE.GENTLE CARE GIVEN. KEPT CLEAN AND DRY.
--- NOTE | 2017-06-03 20:10 | NUR ---
VANCO TROUGH DRAW FROM PICC LINE
[2017-06-03] MEDS: LISINOPRIL 20 MG TAB PO SCH (20:11)
[2017-06-03] MEDS: VANCOMYCIN HCL 750 MG in DEXTROSE 5% 250 ML IV SCH (20:11)
[2017-06-03] MEDS: methylPREDNISolone SS 40 MG/ML VIAL IVP SCH (20:12)
--- NOTE | 2017-06-03 20:30 | NUR ---
THE SON COMING AND STAY IN THE ROOM WITH PT.
--- NOTE | 2017-06-03 21:30 | NUR ---
BLOOD SUGAR WAS 156 AND 2 UNITS INSULIN GIVEN ORDER. ALL NIGHT MEDS INCLUDING ABTS GIVEN AND JASON WELL.
--- NOTE | 2017-06-03 23:38 | NUR ---
PT SLEEPING WELL. REPOSITION PT FOR COMFORT.
[2017-06-04] VITALS (106 sets, daily range): BP systolic 11–123; BP diastolic 20–73
[2017-06-04] MEDS: ALBUTEROL SULFATE/IPRATROPIU 3 ML SOL IH SCH ×4 (01:37→19:17)
--- NOTE | 2017-06-04 02:00 | NUR ---
CONTINUE ON SEDATED. RASS -4. NO S/S OF DISTRESS AT THIS TIME. SKIN WARM TO TOUCH. OPEN EYES WHEN CALLING HER NAME.REPOSITION PT FOR COMFORT.
[2017-06-04 05:33] LABS: HEMATOCRIT 28.1 % (36-48); HEMOGLOBIN 9.1 g/dL (12.0-16.0); MEAN CORPUSCULAR HEMOGLOBIN 31 pg (27-31); MEAN CORPUSCULAR HGB CONC 32 g/dL (33-37); MEAN CORPUSCULAR VOLUME 96 fL (80-94); PLATELET COUNT (AUTO) 181 K/uL (140-450); RED BLOOD CELL COUNT(AUTO) 2.94 MIL/uL (4.20-5.40); RED CELL DISTRIBUTION WIDTH 14.4 % (11.6-13.7); WHITE BLOOD COUNT (AUTO) 21.5 K/uL (4.8-10.8)
[2017-06-04] MEDS: LEVOTHYROXINE 0.05 MG TAB PO SCH (05:41)
[2017-06-04] MEDS: NACL 0.9% 1,000 ML IV SCH ×3 (05:42→23:30)
[2017-06-04] MEDS: PIPER/TAZO 2.25GM/D5W PREMIX 50 ML IV SCH ×3 (05:42→21:06)
[2017-06-04] MEDS: METOPROLOL 25 MG TAB PO SCH ×3 (05:42→21:00)
[2017-06-04 05:58] LABS: ANION GAP 9.1 (8-16); CARBON DIOXIDE 28.6 mmol/L (21-32); CHLORIDE 109 mmol/L (98-107); CREATININE 0.8 mg/dL (0.6-1.3); GLUCOSE 185 mg/dL (74-106); POTASSIUM 3.7 mmol/L (3.5-5.1); SODIUM SERUM 143 mmol/L (136-145); UREA NITROGEN, BLOOD 26 mg/dL (7-18)
--- NOTE | 2017-06-04 06:00 | NUR ---
AM CARE GIVEN,VAP ORAL CARE,SPONGE BATH AND F/C CARE GIVEN. KEPT CLEAN AND DRY.
[2017-06-04 06:02] LABS: MAGNESIUM 2.1 mg/dL (1.8-2.4); PHOSPHORUS 3.9 mg/dL (2.5-4.9)
[2017-06-04 06:19] LABS: LYMPHOCYTES % (MANUAL) 4 % (20-46); MONOCYTES % (MANUAL) 2 % (5-12)
[2017-06-04] MEDS: PROPOFOL 1000 MG/100 ML PREMIX 100 ML IV PRN ×2 (06:19→19:31)
[2017-06-04] MEDS: MORPHINE SULFATE 50 MG in NACL 0.9% 45 ML IV PRN (06:21)
[2017-06-04] MEDS: BLOOD GLUCOSE MONITORING 1 DEV DEV FS SCH ×4 (06:31→21:04)
[2017-06-04] MEDS: INSULIN LISPRO SLIDING SCALE 100 UNITS/ML VIAL SUBQ PRN ×4 (06:32→21:05)
--- NOTE | 2017-06-04 06:35 | NUR ---
BLOOD SUGAR IS 155 AND 2 UNITS INSULIN GIVEN TOLERATED WELL.
--- NOTE | 2017-06-04 06:58 | NUR ---
DR.BRITTANY GIBSON COME TO SEE PT AND MADE AWARE PT HAS NO BM FOR 5 DAYS. DULCOLAX WAS GIVEN ON 06/03/17 STILL NO BM YET. PER MD WILL PUT NEW ORDER FOR CONSTIPATION. WILL ENDORESED TO NEXT SHIFT TO FOLLOW UP.
--- NOTE | 2017-06-04 07:20 | NUR ---
REPORT GIVEN TO AM SHIFT. PT IS CONTINUE ON SEDATION
--- NOTE | 2017-06-04 07:28 | NUR ---
FIO2 TITRATED TO 90%.
--- NOTE | 2017-06-04 07:28 | NUR ---
RECEIVED INTUBATED PT WITH 7.5 ETT SECURE @23 TEETH/GUMS ON VENT. SETTINGS PRVC 12, VT 400, PEEP 5, Tinsp 1.0 AND FIO2 90%. PT SUCTIONED OBTAINED VERY MINIMAL AMOUNT OF THIN PALE YELLOW SECRETIONS. AIRWAY IS PATENT AND ETT IS SECURE, THERE IS NO BITING OR KINKING OF ETT. VENT IS PLUGGED INTO RED OUTLET WITH ALARMS ON AND FUNCTIONING. AMBU BAG IS PRESENT AT BEDSIDE. PT IS NOT SOB AND NOT IN RESPIRATORY DISTRESS. WILL CONTINUE TO MONITOR.
--- NOTE | 2017-06-04 07:30 | NUR ---
RECEIVED PATIENT ON BED.INITIAL ASSESSMENT DONE TO PATIENT . PT WITH 7.5 ETT SECURE @23 TEETH/GUMS ON VENT. SETTINGS PRVC 12, VT 400, PEEP 5, FIO2 90%.PT IS NOT IN ANY CARDIORESPIRATORY DISTRESS. NSR ON THE MONITOR.RIGHT JUGULAR TRIPLE LUMEN CATHETER DRESSING INTACT WITH GOOD BLOOD WITH NS AT 75 ML/H,MORPHINE DRIP AT 3 ML/H,PROPOFOL DRIP AT 5 MCG/KG/MIN..GANNON TO GRAVITY. WILL MONITOR.PT IS NOT PULLING ANYTHING
--- NOTE | 2017-06-04 08:29 | NUR ---
FIO2 TITRATED DOWN TO 80%. SPO2 REMAINS AT 97% AT THIS TIME. PT IS NOT IN RESPIRATORY DISTRESS. TOLERATING VENT SETTINGS WELL AT THIS TIME. WILL CONTINUE TO MONITOR.
--- NOTE | 2017-06-04 08:36 | NUR ---
BEDSIDE TO EVALUATE PT. PHYSICIAN MADE CHANGES TO TRISTIN SETTINGS BY DECREASING FIO2 TO 65% AND DECREASING PEEP TO 7.
[2017-06-04] MEDS: amLODIPine 5 MG TAB PO SCH (09:00)
--- NOTE | 2017-06-04 09:30 | NUR ---
PT TOLERATING VENT SETTINGS WELL AT THIS TIME. PT FAMILY IS BEDSIDE. WILL CONTINUE TO MONITOR.
[2017-06-04] MEDS: DOCUSATE 100 MG/10 ML UDC GT SCH ×2 (09:48→21:06)
[2017-06-04] MEDS: ATORVASTATIN 20 MG TAB PO SCH (09:48)
[2017-06-04] MEDS: CALCIUM ACETATE 667 MG TAB PO SCH (09:49)
[2017-06-04] MEDS: LACTOBACILLUS RHAMNOSUS GG 1 EACH CAP PO SCH (09:50)
[2017-06-04] MEDS: DULoxetine 30 MG CAPDR PO SCH (09:50)
[2017-06-04] MEDS: clonazePAM 0.5 MG TAB PO SCH ×4 (09:53→21:03)
[2017-06-04] MEDS: PANTOPRAZOLE 40 MG INJ VIAL IVP SCH (09:54)
[2017-06-04] MEDS: methylPREDNISolone SS 40 MG/ML VIAL IVP SCH ×2 (09:54→21:02)
--- NOTE | 2017-06-04 10:00 | NUR ---
UPDATED ABOUT PATIENTS CONDITION ESPECIALLY VITAL SIGNS AND SEDATION.
--- NOTE | 2017-06-04 13:45 | NUR ---
PT SUCTIONED OBTAINED SMALL AMOUNT OF THIN SECRETIONS, AIRWAY IS PATENT AND ETT REMAINS SECURE. WILL CONTINUE TO MONITOR.
--- NOTE | 2017-06-04 15:40 | NUR ---
soap elzbieta enema done as ordered .pt tolerated well.
--- NOTE | 2017-06-04 15:57 | NUR ---
VENT CHECK COMPLETED. PT NOT IN ANY DISTRESS AT THIS TIME. WILL CONTINUE TO MONITOR.
--- NOTE | 2017-06-04 17:55 | NUR ---
PT REMAINS ON DOCUMENTED SETTINGS NO CHANGES MADE. VENT ALARMS REMAIN ON AND FUNCTIONING. ETT IS SECURE. AIRWAY IS PATENT. PT SUCTIONED OBTAINED SMALL AMOUNT OF THICK WHITE SECRETIONS.
[2017-06-04] MEDS: VANCOMYCIN 1GM/DEXT 5% PREMIX 200 ML IV SCH (18:00)
--- NOTE | 2017-06-04 19:30 | NUR ---
RECEIVED PT FROM AM SHIFT. INITIAL ASSESSMENT DONE. PT IS ON ETT TO VENT. ETT NO 7.5. IN PLACE. VENT SETTING AC 12, TV 400 FIO2 65% AND PEEP 7 JASON WELL.NO RESP DISTRESS,NO SOB AT THIS TIME. SR ON MONITOR. CENTRAL LINE TO RIGHT IJ WITH TRIPLE LUMENS. INTACT AND GOOD BLOOD RETURN. CONT ON NS AT 75 CC/HR. CONT ON SEDATION PROPOFOL AT 5 MCG/KG/MIN AND MORPHINE 3 MG/HR.CONT ON IV ABT ORDER.OGT IN PLACE WITH TUBE FEEDING NUTREN PULMONARY AT 45 CC/HR AND H2O AT 50 TOLERATED WELL.10 CC RESIDUAL NOTED. BOTH UPPER AND LOWER EXTREMITIES DISCOLORATION AND EDEMA +2 PITTING[address]F/C IN PLACE WITH YELLOW CLEAR COLOR DRAINAGE BY GRAVITY.GENTLE CARE GIVEN. KEPT CLEAN AND DRY.
[2017-06-04] MEDS: LISINOPRIL 20 MG TAB PO SCH (21:00)
--- NOTE | 2017-06-04 21:15 | NUR ---
NIGHT MED WAS GIVEN. BLOOD SUGAR 162 AND 2 UNITS INSULIN GIVEN. LOPRESSOR 12.5 MG AND ZESTRIL 40 MG NOT GIVEN D/T BP LOW 76/48.
--- NOTE | 2017-06-04 21:29 | NUR ---
PT O2 SAT WAS 83% RT AT BED SIDE .FIO2 INCREASE TO 100%
--- NOTE | 2017-06-04 21:30 | NUR ---
REPORT TO DR.MENDEZ GOODSON PT HAS EPISODE OF LOW BP 75/48,RESP 12,HR 84.NO FEVER. PER MD TO GIVE 1 LITER BOLUS OF NS. CONTINUE TO MONITOR .
[2017-06-04] MEDS ORDERED: NACL 0.9% 1,000 ML IV SCH (21:45)
--- NOTE | 2017-06-04 23:45 | NUR ---
MORPHINE TITRATE TO 2 MG/HR D/T BP LOW 79/52.CONTINUE TO MONITOR CLOSELY.
[2017-06-05] VITALS (100 sets, daily range): BP systolic 75–118; BP diastolic 41–79
--- NOTE | 2017-06-05 00:30 | NUR ---
PT CONT ON SEDATION. NO FEVER T 96.4. PT COVER WITH BLANKET. DECREASE MORPHINE TO 1 MG/HR BP WAS 82/49,HR 78.CONT TO MONITOR CLOSELY.
[2017-06-05] MEDS: ALBUTEROL SULFATE/IPRATROPIU 3 ML SOL IH SCH ×4 (01:33→19:26)
--- NOTE | 2017-06-05 01:35 | NUR ---
RT DECREASE THE O2 BY 90% PT JASON WELL.O2 SAT
[2017-06-05] MEDS ORDERED: NACL 0.9% 1,000 ML IV ONE (02:15)
--- NOTE | 2017-06-05 02:15 | NUR ---
MD DR.MANDEZ GOODSON MADE AWARE THAT BP IS LOW 77/59 ALSO MORPHINE IS HELD DUE TO BP IS LOW. PER MD TO GIVE ANOTHER 1000 CC NS BOLUS.
--- NOTE | 2017-06-05 02:56 | NUR ---
FIO2 DOWN TO 75% TOLERATED WELL,O2 SAT 100 %
--- NOTE | 2017-06-05 04:30 | NUR ---
AM CARE GIVEN,VAP ORAL CARE, F/C CARE AND BEDBATH GIVEN JASON WELL
[2017-06-05] MEDS: METOPROLOL 25 MG TAB PO SCH ×3 (05:00→20:29)
[2017-06-05] MEDS: PIPER/TAZO 2.25GM/D5W PREMIX 50 ML IV SCH ×3 (05:16→20:30)
--- NOTE | 2017-06-05 05:30 | NUR ---
AM MEDS GIVEN JASON WELL
[2017-06-05] MEDS: LEVOTHYROXINE 0.05 MG TAB PO SCH (05:42)
[2017-06-05 06:10] LABS: HEMATOCRIT 26.3 % (36-48); HEMOGLOBIN 8.6 g/dL (12.0-16.0); MEAN CORPUSCULAR HEMOGLOBIN 32 pg (27-31); MEAN CORPUSCULAR HGB CONC 33 g/dL (33-37); MEAN CORPUSCULAR VOLUME 97 fL (80-94); PLATELET COUNT (AUTO) 193 K/uL (140-450); RED BLOOD CELL COUNT(AUTO) 2.72 MIL/uL (4.20-5.40); RED CELL DISTRIBUTION WIDTH 14.5 % (11.6-13.7); WHITE BLOOD COUNT (AUTO) 19.4 K/uL (4.8-10.8)
[2017-06-05 06:14] LABS: ANION GAP 10.2 (8-16); CARBON DIOXIDE 25.8 mmol/L (21-32); CHLORIDE 111 mmol/L (98-107); CREATININE 0.8 mg/dL (0.6-1.3); GLUCOSE 184 mg/dL (74-106); SODIUM SERUM 143 mmol/L (136-145); UREA NITROGEN, BLOOD 34 mg/dL (7-18)
[2017-06-05 06:20] LABS: ALBUMIN 1.5 g/dL (3.4-5.0); MAGNESIUM 2.1 mg/dL (1.8-2.4); PHOSPHORUS 4.2 mg/dL (2.5-4.9); TOTAL BILIRUBIN 0.2 mg/dL (0.0-1.0)
--- NOTE | 2017-06-05 06:30 | NUR ---
BLOOD SUGAR IS 148. NO INSULIN NEEDED.
[2017-06-05 06:49] LABS: LYMPHOCYTES % (MANUAL) 2 % (20-46); MONOCYTES % (MANUAL) 3 % (5-12)
--- NOTE | 2017-06-05 06:55 | NUR ---
COME TO SEE PT. REPORTED THAT PT HAS PERINEAL AREA REDNESS. PER MD WILL ORDER Z GUARD. ENDORSE TO AM SHIFT TO FOLLOW UP WITH MD AGAIN.
[2017-06-05 07:04] LABS: BILIRUBIN,DIRECT 0.1 mg/dL (0.0-0.3)
--- NOTE | 2017-06-05 07:20 | NUR ---
RECEIVED REPORT FROM NOC SHIFT RN. PT SLEPING IN BED COMFORTABLY. SR ON MONITOR. NO ACUTE DISTRESS NOTED. PT ON ETT TUBE TO VENT AT AC/PC MODE WITH SETTING FIO2 75, TV 400, RR 12, PEEP 7. OGT IN PLCE. ON OGT FEEDING NUTREN PULMONARY AT 45 ML/HR. RIGHT IJ TRIPLE LUMEN INTACT. PT ON PROPOFOL DRIP WITH RASS -4. NS RUNNING AT 75 ML/HR. SKIN DRY AND COOL TO TOUCH. KEPT PT COVERING WITH BLANKET. LUNGS SOUND CLEAR ON AUSCULTATION. ABSENT BOWEL SOUND. GANNON'S CATH IN PLACE DRAINING CLEAR YELLOW URINE. EDEMATOUS BLE AND BUE. SKIN DISCOLORATION ON BUE. SAFETY MEASURES APPLIED. CALL LIGHT WITHIN REACH, BED LOW AND LOCKED. WILL CONTINUE TO MONITOR.
[2017-06-05] MEDS: BLOOD GLUCOSE MONITORING 1 DEV DEV FS SCH ×4 (07:35→20:27)
--- NOTE | 2017-06-05 07:35 | NUR ---
REPORT GIVEN TO AM SHIFT. ENDORSE TO FOLLOW FOR BURT ORTIZ
[2017-06-05] MEDS: PROPOFOL 1000 MG/100 ML PREMIX 100 ML IV PRN (07:36)
--- NOTE | 2017-06-05 07:40 | NUR ---
RECEIVED INTUBATED PT WITH 7.5 ETT SECURE @23 TEETH/GUMS ON VENT. SETTINGS PRVC 12, VT 400, PEEP 7, Tinsp 1.0 AND FIO2 65%. PT SUCTIONED OBTAINED SMALL AMOUNT OF THIN PALE YELLOW SECRETIONS. AIRWAY IS PATENT AND ETT IS SECURE, THERE IS NO BITING OR KINKING OF ETT. VENT IS PLUGGED INTO RED OUTLET WITH ALARMS ON AND FUNCTIONING. AMBU BAG IS PRESENT AT BEDSIDE. PT IS NOT SOB AND NOT IN RESPIRATORY DISTRESS. WILL CONTINUE TO MONITOR.
[2017-06-05] MEDS: Z-GUARD PASTE TP SCH ×2 (09:00→20:31)
[2017-06-05] MEDS: amLODIPine 5 MG TAB PO SCH (09:00)
[2017-06-05] MEDS: CALCIUM ACETATE 667 MG TAB PO SCH (09:19)
[2017-06-05] MEDS: methylPREDNISolone SS 40 MG/ML VIAL IVP SCH ×2 (09:20→20:28)
[2017-06-05] MEDS: PANTOPRAZOLE 40 MG INJ VIAL IVP SCH (09:20)
[2017-06-05] MEDS: DOCUSATE 100 MG/10 ML UDC GT SCH ×2 (09:20→20:28)
[2017-06-05] MEDS: DULoxetine 30 MG CAPDR PO SCH (09:22)
[2017-06-05] MEDS: clonazePAM 0.5 MG TAB PO SCH ×4 (09:26→20:28)
[2017-06-05] MEDS: LACTOBACILLUS RHAMNOSUS GG 1 EACH CAP PO SCH (09:29)
[2017-06-05] MEDS: ATORVASTATIN 20 MG TAB PO SCH (09:30)
--- NOTE | 2017-06-05 10:11 | NUR ---
PT RESTING IN BED COMFORTABLY. SPONTANEOUS EYES OPENING. WITHDRAWS ARM TO PAIN. NO CHANGE IN LOC. WILL CONTINUE TO MONITOR.
--- NOTE | 2017-06-05 10:26 | NUR ---
DR. CHESTER AND RESIDENT GROUP IN TO SEE PT. WILL FOLLOW UP ON ORDER.
--- NOTE | 2017-06-05 11:25 | NUR ---
CALLED DR. GIBSON MADE AWARE ABOUT LOW/ FLUCTUATING BP.
--- NOTE | 2017-06-05 12:03 | NUR ---
BP 84/51. DR. HICKS MADE AWARE. NO NEW ORDER AT THIS TIME. PT ON CONTINUOUS MONITORING.
--- NOTE | 2017-06-05 12:07 | NUR ---
FIO2 TITRATED DOWN TO 60%. SPO2 REMAINS MID 90'S. WILL CONTINUE TO MONITOR.
--- NOTE | 2017-06-05 13:25 | NUR ---
PT SLEEPING IN BED. NO ACUTE DISTRESS NOTED. KEPT CLEAN AND DRY. NO CHANGING LOC. WILL CONTINUE TO MONITOR.
--- NOTE | 2017-06-05 14:10 | NUR ---
DR. SANON IN TO SEE PT. WILL FOLLOW UP ON ORDER.
--- NOTE | 2017-06-05 14:15 | NUR ---
BEDSIDE TO EVALUATE PT. PHYSICIAN TITRATED PEEP DOWN TO 5 cmH20.
[2017-06-05] MEDS ORDERED: MIDAZOLAM MDV 50 MG in NACL 0.9% 40 ML IV PRN (14:45)
--- NOTE | 2017-06-05 15:23 | NUR ---
PT RESTING IN BED AT THIS TIME. NO C
--- NOTE | 2017-06-05 16:10 | NUR ---
FIO2 TITRATED DOWN TO 50%. PT NOT IN ANY DISTRESS AT THIS TIME .
[2017-06-05] MEDS: MORPHINE SULFATE 50 MG in NACL 0.9% 45 ML IV PRN (16:47)
[2017-06-05] MEDS: MIDAZOLAM MDV 50 MG in NACL 0.9% 40 ML IV SCH (16:48)
--- NOTE | 2017-06-05 17:43 | NUR ---
PT REMAINS ON DOCUMENTED SETTINGS NO CHANGES AT THIS TIME. ETT REMAINS SECURE WITH A PATENT AIRWAY. FAMILY IS BEDSIDE. VENT ALARMS REMAIN ON AND FUNCTIONING.
--- NOTE | 2017-06-05 17:44 | NUR ---
PT RESTING IN BED. NO CHANGES IN LOC. AT BEDSIDE. WILL CONTINUE TO MONITOR.
[2017-06-05] MEDS: VANCOMYCIN 1GM/DEXT 5% PREMIX 200 ML IV SCH (17:51)
--- NOTE | 2017-06-05 19:20 | NUR ---
REPORT GIVEN TO NOC MARICRUZ RN FOR CONTINUITY OF CARE. . PT ON STABLE CONDITION.
--- NOTE | 2017-06-05 19:37 | NUR ---
RECEIVED REPORT FROM MORNING NURSEABDULAZIZ RN. PT IS AWAKE AND TRYING TO MOVE THE ETT AT THIS TIME. PT CURRENTLY ON VERSED DRIP @ 1MG/HR AND MORPHINE DRIP @ 1 MG/HR. INCREASED MORPHINE DRIP AND VERSED DRIP TO 2 MG/HR EACH TO MEET RASS -4. ETT SIZE 7.5 TAPED AT THE RIGHT LIP @23 TO VENT AC 12, FIO2 50, TV 400, PEEP 5. CLEAR LUNGS AUSCULTATED. S1 AND S2 HEARD WITHOUT ABNORMAL HEART SOUNDS. BOWEL SOUND ACTIVE FROM ALL 4 QUADS. RIGHT IJ WITH TRIPLE LUMEN ALL PATENT AND ASYMPTOMATIC. GANNON CATH DRAINING CLEAR YELLOW URINE VIA GRAVITY. OGT TO FEEDING AT THIS TIME. PLACEMENT CHECKED AND RESIDUAL 5ML NOTED. PEDAL PULSES FELT FROM BILATERAL FEET. HOB KEPT ELEVATED TO 30 DEGREES. BED TO THE LOWEST POSITION. CALL LIGHT IN REACH. WILL CONTINUE TO MONITOR.
--- NOTE | 2017-06-05 20:07 | NUR ---
PT IS RASS -4 AT THIS TIME WITH VERSED @ 2MG/HR AND MORPHINE @ 2MG/HR. WILL CONTINUE TO MONITOR.
--- NOTE | 2017-06-05 20:29 | NUR ---
METOPROLOL NOT ADMINISTERED DUE TO BP=96/56. LA=[id number] PER PARAMETER.
--- NOTE | 2017-06-05 23:58 | NUR ---
PT RASS -4. ON VERSED AND MORPHINE DRIPS. FLACC 0. VS STABLE AT THIS TIME. ALL SAFETY PRECAUTIONS ARE IN PLACE. WILL CONTINUE TO MONITOR.
[2017-06-06] VITALS (51 sets, daily range): BP systolic 81–127; BP diastolic 49–81
--- NOTE | 2017-06-06 01:09 | NUR ---
CONTINUE TO MONITOR UNDER CARDIAC MONITORING AND NO ACUTE DISTRESS NOTED. WILL CONTINUE TO MONITOR.
[2017-06-06] MEDS: ALBUTEROL SULFATE/IPRATROPIU 3 ML SOL IH SCH ×4 (01:32→19:11)
[2017-06-06] MEDS: MIDAZOLAM MDV 50 MG in NACL 0.9% 40 ML IV SCH (02:38)
[2017-06-06] MEDS: MORPHINE SULFATE 50 MG in NACL 0.9% 45 ML IV PRN (02:39)
--- NOTE | 2017-06-06 02:46 | NUR ---
PT RASS -4. ON VERSED AND MORPHINE DRIPS. ST ON MONITOR. NO ACUTE DISTRESS NOTED. ALL SAFETY PRECAUTIONS IN PLACE. WILL CONTINUE TO MONITOR.
--- NOTE | 2017-06-06 04:06 | NUR ---
CONTINUING WITH VERSED AND MORPHINE DRIPS. RASS -4. ST ON MONITOR. NO FEVER. NO ACUTE DISTRESS NOTED. WILL CONTINUE TO MONITOR.
[2017-06-06] MEDS: PIPER/TAZO 2.25GM/D5W PREMIX 50 ML IV SCH (04:15)
[2017-06-06 04:47] LABS: HEMATOCRIT 27.1 % (36-48); HEMOGLOBIN 8.9 g/dL (12.0-16.0); MEAN CORPUSCULAR HEMOGLOBIN 32 pg (27-31); MEAN CORPUSCULAR HGB CONC 33 g/dL (33-37); MEAN CORPUSCULAR VOLUME 96 fL (80-94); PLATELET COUNT (AUTO) 244 K/uL (140-450); RED BLOOD CELL COUNT(AUTO) 2.81 MIL/uL (4.20-5.40); RED CELL DISTRIBUTION WIDTH 14.4 % (11.6-13.7); WHITE BLOOD COUNT (AUTO) 21.3 K/uL (4.8-10.8)
[2017-06-06] MEDS: METOPROLOL 25 MG TAB PO SCH ×2 (05:16→12:58)
[2017-06-06 05:20] LABS: MAGNESIUM 2.1 mg/dL (1.8-2.4); PHOSPHORUS 3.5 mg/dL (2.5-4.9)
[2017-06-06 05:21] LABS: ANION GAP 9.5 (8-16); CARBON DIOXIDE 25.8 mmol/L (21-32); CHLORIDE 110 mmol/L (98-107); GLUCOSE 158 mg/dL (74-106); POTASSIUM 4.3 mmol/L (3.5-5.1); SODIUM SERUM 141 mmol/L (136-145); UREA NITROGEN, BLOOD 39 mg/dL (7-18)
--- NOTE | 2017-06-06 05:30 | NUR ---
AM CARE AND GANNON CARE PROVIDED. TOLERATED WELL. NO ACUTE DISTRESS NOTED.
--- NOTE | 2017-06-06 06:28 | NUR ---
AGRICULTURE LABORER AT BED SIDE PERFORMING CHEST X-RAY.
[2017-06-06] MEDS: LEVOTHYROXINE 0.05 MG TAB PO SCH (06:40)
[2017-06-06] MEDS: BLOOD GLUCOSE MONITORING 1 DEV DEV FS SCH ×3 (06:41→16:22)
[2017-06-06 06:46] LABS: LYMPHOCYTES % (MANUAL) 6 % (20-46); MONOCYTES % (MANUAL) 2 % (5-12)
--- NOTE | 2017-06-06 07:19 | NUR ---
REPORT GIVEN TO MORNING NURSE, REGULO LARES FOR CONTINUITY OF CARE. NO ACUTE DISTRESS NOTED.
--- NOTE | 2017-06-06 07:30 | NUR ---
REPORT RECEIVED FROM NIGHT NURSE. PT IS SEDATED WITH RASS -4. ST ON MONITOR. ETT TAPED AT THE MID LIPS AT 23 TO VENT SETTINGS AC 12, TV 400, FIO2 50%, PEEP 5. BILATERAL LUNGS CLEAR UPON AUSCULTATION. CENTRAL LINE TO RIGHT IJ TLC PATENT AND INTACT, RECEIVING NS AT 10 ML/HR, VERSED DRIP AT 2 MG/HR AND MORPHINE DRIP AT 2 MG/HR. ABDOMEN SOFT, NONDISTENDED. OGT IN PLACE, PLACEMENT CONFIRMED, RECEIVING TUBE FEEDING NUTREN PULMONARY AT 45 ML/HR, 3 ML OF RESIDUAL NOTED. GANNON CATH IN PLACE DRAINING CLEAR YELLOW URINE TO GRAVITY DRAINAGE BAG. EDEMA 2+ NOTED ON BLUE. SKIN IS WARM TO TOUCH. SCDS IN PLACE FOR VTE PROPHYLAXIS. BED IN LOW POSITION, HOB AT 30 DEGREES AND CALL LIGHT WITHIN REACH. WILL CONTINUE TO MONITOR.
--- NOTE | 2017-06-06 07:32 | NUR ---
RECEIVED INTUBATED PT WITH 7.5 ETT SECURE @23 TEETH/GUMS ON VENT. SETTINGS PRVC 12, VT 400, PEEP 5, Tinsp 1.0 AND FIO2 50%. PT SUCTIONED OBTAINED VERY MINIMAL AMOUNT OF THICK WHITE SECRETIONS. AIRWAY IS PATENT AND ETT IS SECURE, THERE IS NO BITING OR KINKING OF ETT. VENT IS PLUGGED INTO RED OUTLET WITH ALARMS ON AND FUNCTIONING. AMBU BAG IS PRESENT AT BEDSIDE. PT IS NOT SOB AND NOT IN RESPIRATORY DISTRESS. WILL CONTINUE TO MONITOR.
[2017-06-06] MEDS: CALCIUM ACETATE 667 MG TAB PO SCH (07:44)
--- NOTE | 2017-06-06 07:48 | NUR ---
RESIDENT PHYSICIAN GROUP IN TO SEE PT. WILL FOLLOW UP ON ORDERS.
[2017-06-06] MEDS: PANTOPRAZOLE 40 MG INJ VIAL IVP SCH (08:14)
[2017-06-06] MEDS: methylPREDNISolone SS 40 MG/ML VIAL IVP SCH (08:14)
[2017-06-06] MEDS: DOCUSATE 100 MG/10 ML UDC GT SCH (08:14)
[2017-06-06] MEDS: DULoxetine 30 MG CAPDR PO SCH (08:15)
[2017-06-06] MEDS: LACTOBACILLUS RHAMNOSUS GG 1 EACH CAP PO SCH (08:15)
[2017-06-06] MEDS: ATORVASTATIN 20 MG TAB PO SCH (08:15)
[2017-06-06] MEDS: Z-GUARD PASTE TP SCH (08:21)
[2017-06-06] MEDS: clonazePAM 0.5 MG TAB PO SCH ×3 (08:22→16:12)
--- NOTE | 2017-06-06 08:41 | NUR ---
MEDICATIONS ADMINISTERED. PT TOLERATED WELL. HELD KLONOPIN DUE TO PT ON VERSED AND MORPHINE DRIPS W/ RASS -4.
--- NOTE | 2017-06-06 08:43 | NUR ---
ENTRY FOR 06/03/17 PAUL MERAZ BURT LIAISON FROM [place] NOTIFIED OF REFERRAL AND INFORMATION PROVIDED WHEN ONSITE.
--- NOTE | 2017-06-06 09:00 | NUR ---
DR. WARE MADE AWARE OF ZOSYN ABX COMPLETION OF TODAY, LOW BP OF 81/54, PERINEAL AREA REDNESS AND SCAB ON RIGHT UPPER CHEST. WILL FOLLOW UP ON ORDERS. WILL CONTINUE TO MONITOR.
--- NOTE | 2017-06-06 09:23 | NUR ---
FIO2 TITRATED DOWN TO 40%. SPO2 96% AT THIS TIME. WILL CONTINUE TO MONITOR. PT NOT SOB/RESPIRATORY DISTRESS.
--- NOTE | 2017-06-06 09:38 | NUR ---
AT BEDSIDE AND WAS UPDATED ON PT.
--- NOTE | 2017-06-06 09:45 | NUR ---
DR. HARTMANN IN TO SEE PT. WILL FOLLOW UP ON ORDERS.
--- NOTE | 2017-06-06 10:22 | NUR ---
DR. ALTAMIRANO IN TO SEE AND EXAMINE PT. WILL FOLLOW UP ON ORDERS.
--- NOTE | 2017-06-06 10:41 | NUR ---
RECEIVED A CALL FROM PAUL AT [facility] AND PROVIDED UPDATES ON PT.
--- NOTE | 2017-06-06 10:46 | NUR ---
CURRENT BP 95/57. PT STILL ON VERSED AND MORPHINE DRIPS. RASS-4. FLACC 0. NO S/SX OF ACUTE DISTRESS AT THIS TIME. SAFETY PRECAUTIONS IN PLACE. WILL CONTINUE TO MONITOR.
--- NOTE | 2017-06-06 11:57 | NUR ---
DR. SANON IN TO SEE AND EXAMINE PT. WILL FOLLOW UP WITH NEW ORDERS.
--- NOTE | 2017-06-06 12:00 | NUR ---
CONTINUED ON SEDATION. EYES OPEN TO CALLING NAME AND LIGHT SHAKING. FLACC 0. BP 114/68. NO SOB OR ACUTE DISTRESS AT THIS TIME. WILL CONTINUE TO MONITOR.
--- NOTE | 2017-06-06 12:15 | NUR ---
WOUND CARE EVALUATION NOTES: REASON FOR EVALUATION: SKIN RASHES COMPLETE SKIN ASSESSMENT DONE ON THIS 77 Y/O FEMALE PATIENT FROM HOME TO [facility], WITH INITIAL DIAGNOSIS OF SOB. PAST MEDICAL HISTORY INCLUDE NEUROPATHY, CVA, HYPERTENSION AND CHRONIC BACK PAIN. ALL ABOVE INFORMATION WAS OBTAINED FROM THE ADMISSION H&P. LABS ARE WBC 21.3, H/H 8.9/27.1, GLUCOSE 158, ALBUMIN 1.5. CURRENT MEDS INCLUDE PIPERACILLIN,VANCOMYCIN, METOPROLOL AND PANTOPRAZOLE. PATIENT IS SEDATED WITH SKIN WARM TO TOUCH WNL, THICKENED TOENAILS, NO EDEMA, NO HAIR GROWTH AND BILATERAL PEDAL PULSES PRESENT. RIGHT FOREARM +2 EDEMA SKIN DRY AND INTACT. GANNON CATHETER PATENT AND INTACT TO KADEN COLORED URINE IN SMALL AMOUNT. NEEDS ASSISTANCE IN TURNING. PLAN OF CARE AND PRESSURE PREVENTIVE MEASURES DISCUSSED PRIMARY NURSE. INTEGUMENTARY: INCONTINENT ASSOCIATE DERMATITIS ON BILATERAL GROINS AND PERINEUM AREAS BLANCHABLE REDNESS TO SACRALCOCCYX AND BILATERAL HEELS DRY SCAB TO UPPER CHEST MIDLINE AREA 1X1 CM ECCHYMOSIS TO RIGHT CENTRAL LINE SITE 2X2 CM RECOMMENDATIONS: -CLEANSE GROINS AND PERINEUM AREAS IAD WITH SOAP AND WATER, APT DRY, APPLY ANTIFUNGAL CREAMS BIDWC AND PRN IF SOILING -APPLY OPTIFORM TO DRY SCAB QD AND CHANGE Q7DAYS OR PRN IF SOILING PREVENTION FROM IRRITATION OF RESPIRATORY MEDICAL DEVICES -TURN AND REPOSITION PATIENT Q2H TO LEFT AND RIGHT SIDE ONLY TO OFFLOAD SACRALCOCCYX -ASSESS AND MONITOR SKIN CONDITION DURING POSITION CHANGE, PLEASE PAY ATTENTION TO SACRALCOCCYX AND HEELS -OFFLOAD BILATERAL HEELS BY PLACING PILLOWS UNDER CALVES AT ALL TIMES, UNLESS OTHERWISE CONTRAINDICATED -PRESSURE REDISTRIBUTION SURFACE THERAPY -KEEP SKIN CLEAN AND DRY AT ALL TIMES. RECOMMENDATIONS DISCUSSED WITH PRIMARY RN WILL FOLLOW UP PATIENT Q 7 -10 DAYS AND PRN. PLEASE CONTACT WOUND CARE NURSE FOR ANY CONCERNS AND CHANGES IN WOUND CONDITION
--- NOTE | 2017-06-06 12:59 | NUR ---
MEDICATIONS ADMINISTERED. PT TOLERATED WELL. PT'S BP HAS BEEN TRENDING LOW, 107/ 65 CURRENTLY. HELD LOPRESSOR AT THIS TIME. WILL CONTINUE TO MONITOR.
[2017-06-06] MEDS ORDERED: PIPER/TAZO 2.25GM/D5W PREMIX 50 ML IV SCH (13:00)
--- NOTE | 2017-06-06 13:00 | NUR ---
DR. WARE NOTIFY OF RECOMMENDATIONS.
[2017-06-06] MEDS ORDERED: ANTIFUNGAL CLEAR OINTMENT TP SCH (13:40)
--- NOTE | 2017-06-06 14:01 | NUR ---
VENT CHECK COMPLETED. PT SUCTIONED OBTAINED SMALL AMOUNT OF THIN CLEAR AND WHITE SECRETIONS. AIRWAY IS PATENT AND ETT IS SECURE. WILL CONTINUE TO MONITOR.
--- NOTE | 2017-06-06 14:29 | NUR ---
RASS -4, ON VERSED AND MORPHINE DRIPS. FLACC 0. NO ACUTE DISTRESS NOTED. SAFETY MEASURES MAINTAINED. WILL CONTINUE TO MONITOR.
--- NOTE | 2017-06-06 14:43 | NUR ---
06/06/17 RD FOLLOW UP COMPLETED PLEASE REFER TO NUTRITION ASSESSMENT UNDER CARE ACTIVITY FOR ESTIMATED NUTRITIONAL NEEDS. 1. RECOMMEND NUTRITION SUPPORT: NUTREN PULMONARY TO 45 ML/HR -THIS MEETS 100% OF PT ESTIMATED KCAL AND PROTEIN NEEDS 2. SHOULD PATIENT REQUIRE VENTILATOR SUPPORT LONG-TERM CONSIDER PLACEMENT OF GTUBE FOR LONG-TERM NUTRITION SUPPORT 3. SHOULD PT BE WEANED OFF OF VENTILATOR SUPPORT CONSIDER ADVANCING DIET BACK TO SOFT WITH BOOST TID 4. RD TO FOLLOW-UP 2-3 DAYS, HIGH RISK IMELDA CROCKETT RD
--- NOTE | 2017-06-06 15:30 | NUR ---
CALLED [facility] AT [phone] TO GIVE REPORT. PER [employer]LE SQL DEVELOPER CHRISTINE AT [facility], NO ONE IS AVAILABLE TO TAKE REPORT AT THIS TIME AND WILL CALL BACK IN A FEW HOURS. WILL FOLLOW UP.
--- NOTE | 2017-06-06 15:57 | NUR ---
SPOKE WITH NIKHIL FROM [facility] TO SETUP PT TRANSPORT. PER NIKHIL, PT TO BE TRANSFERRED AT 1930.
[2017-06-06] MEDS ORDERED: METH40PD15 IVP (16:16)
[2017-06-06] MEDS ORDERED: ZOS2.25PM IV (16:21)
--- NOTE | 2017-06-06 16:21 | NUR ---
FAMILY IS BEDSIDE AT THIS TIME. SUCTIONING NOT INDICATED AT THIS TIME. ETT REMAINS SECURE.
[2017-06-06] MEDS ORDERED: VANC1FRO IV (16:23)
[2017-06-06] MEDS ORDERED: ZGUARD TP (16:24)
--- NOTE | 2017-06-06 16:38 | NUR ---
PT PICKUP TIME FROM [facility] CHANGED TO 1999
--- NOTE | 2017-06-06 17:39 | NUR ---
PT REMAINS ON DOCUMENTED SETTINGS NO CHANGES MADE. ETT REMAINS SECURE WITH A PATENT AIRWAY. ETT AND VENT CIRCUIT ELEVATED TO PREVENT ETT RESTING ON PT LIP TO AND FURTHER BREAKDOWN. VENT ALARMS REMAIN ON AND FUNCTIONING. PT NOT DEMONSTRATING ANY SIGNS/SYMPTOMS OF RESPIRATORY DISTRESS.
[2017-06-06] MEDS: VANCOMYCIN 1GM/DEXT 5% PREMIX 200 ML IV SCH (18:00)
--- NOTE | 2017-06-06 18:00 | NUR ---
TUBE FEEDING HELD PRIOR TO TRANSFER TO [facility] AN ASPIRATION PRECAUTION.
--- NOTE | 2017-06-06 18:11 | NUR ---
NO CHANGE OF CONDITION AT THIS TIME. SEDATED WITH VERSED AND MORPHINE DRIPS, RASS -4. NO SOB OR OTHER ACUTE DISTRESS NOTED AT THIS TIME. SAFETY PRECAUTIONS IN PLACE. WILL CONTINUE TO MONITOR.
--- NOTE | 2017-06-06 18:55 | NUR ---
VANCO TROUGH 18.9. PER ON-CALL PHARMACIST, OK TO GIVE SAME DOSE. MEDICATION NOT AVAILABLE AT THIS TIME AND PT TO BE TRANSFERRED TO [facility] AT 1999. ENDORSED VANCO DOSE TO ZOEY AT [facility].
--- NOTE | 2017-06-06 19:01 | NUR ---
REPORT GIVEN TO ZOEY FROM [facility]. ALL QUESTIONS ANSWERED.
--- NOTE | 2017-06-06 19:19 | NUR ---
RECEIVED PT STABLE ON VENT SUPPORT A DOCUMENTED SETTINGS, SXN'D SCANT THICK CAMPBELL SECRETIONS, HHN TX GIVEN, TOLERATED WELL, NO RESP DISTRESS OR SOB NOTED AT THIS TIME, 7.5 ETT SECURED AT 23 CM AT THE LIP, ALARMS SET AND AUDIBLE, AMBU BAG AT BEDSIDE, VENT PLUGGED INTO RED OUTLET, AWARE OF PICKUP FOR [facility], WILL CONT TO MONITOR.
--- NOTE | 2017-06-06 19:27 | NUR ---
REPORT GIVEN TO NIGHT NURSE FOR CONTINUITY OF CARE. NO ACUTE DISTRESS NOTED AT THIS TIME.
--- NOTE | 2017-06-06 19:30 | NUR ---
RECEIVED PATIENT ON BED ORALLY INTUBATE AND VENTILATED AT 40%FIO2. SO2 97%. CARDIACSCOPE SHOWS ON SINUS TACHY HR 104/MIN NO ARRHYTHMIAS SEEN.SEDATED WITH MORPHINE DRIP AT 1 MG/HR AND ON VERSED DRIP 1 MG/HR VIA RIGHT INTERNAL JUGULAR LINE IN PROGRESS. WITH OGT IN PLACE; INTACT. ABDOMEN SOFT, NON TENDER; HYPOACTIVE BOWEL SOUNDS. GANNON CATH IN PLACE; PATENT AND INTACT.
--- NOTE | 2017-06-06 19:40 | NUR ---
FOR DISCHARGE TO [facility]; YOJANA CALLED ON THE PHONE 2X TO ASK HIM TO SIGN PAPERS OR CONSENT FOR TRANSFER/DISCHARGE BUT PHONE ONLY KEEPS RINGING AND COULDN'T EVEN LEAVE A MESSAGE.
--- NOTE | 2017-06-06 19:55 | NUR ---
PARAMEDICS HERE TO BOTTOMING ROOM SUPERVISOR THE PATIENT; PATIENT'S YOJANA CAME IN TOO AND SIGNED ALL THE DISCHARGE PAPERS.
--- NOTE | 2017-06-06 20:00 | NUR ---
ENDORSED TO AMBULANCE NURSE.
--- NOTE | 2017-06-06 20:25 | NUR ---
DISCHARGE TO [facility] FOR CONTINUITY OF CARE. ENDORSED TO AMBULANCE NURSE.
== END 2017-06-06 20:25 | DRG 870 ==
LOC: MED 13:55 → MIC 15:30 → MTU 05-27 10:30 → MIC 05-29 10:00
PROVIDERS: ADMIT Family Medicine; ATTEND Family Medicine
PROC: 5A09357 Assistance with Respiratory Ventilation, Less than 24 Consecutive Hours, Continuous Positive Airway Pressure (ICD-10-PCS; principal; 2017-05-24)
PROC: 0BH17EZ Insertion of Endotracheal Airway into Trachea, Via Natural or Artificial Opening (ICD-10-PCS; 2017-05-24)
PROC: 5A09357 Assistance with Respiratory Ventilation, Less than 24 Consecutive Hours, Continuous Positive Airway Pressure (ICD-10-PCS; 2017-05-24)
PROC: 5A1955Z Respiratory Ventilation, Greater than 96 Consecutive Hours (ICD-10-PCS; 2017-05-29)
PROC: 05HM33Z Insertion of Infusion Device into Right Internal Jugular Vein, Percutaneous Approach (ICD-10-PCS; 2017-05-29)
PROC: B543ZZA Ultrasonography of Right Jugular Veins, Guidance (ICD-10-PCS; 2017-05-29)
DX: A41.9 Sepsis, unspecified organism (principal); J69.0 Pneumonitis due to inhalation of food and vomit; N17.0 Acute kidney failure with tubular necrosis; J96.21 Acute and chronic respiratory failure with hypoxia; E43 Unspecified severe protein-calorie malnutrition; R65.21 Severe sepsis with septic shock; E86.0 Dehydration; I24.9 Acute ischemic heart disease, unspecified; E83.39 Other disorders of phosphorus metabolism; E11.22 Type 2 diabetes mellitus with diabetic chronic kidney disease; K83.1 Obstruction of bile duct; I42.0 Dilated cardiomyopathy; C25.9 Malignant neoplasm of pancreas, unspecified; Z68.1 Body mass index [BMI] 19.9 or less, adult; D63.8 Anemia in other chronic diseases classified elsewhere; G89.4 Chronic pain syndrome; I12.9 Hypertensive chronic kidney disease with stage 1 through stage 4 chronic kidney disease, or unspecified chronic kidney disease; N18.9 Chronic kidney disease, unspecified; I25.10 Atherosclerotic heart disease of native coronary artery without angina pectoris; E11.42 Type 2 diabetes mellitus with diabetic polyneuropathy; K57.90 Diverticulosis of intestine, part unspecified, without perforation or abscess without bleeding; M48.00 Spinal stenosis, site unspecified; R74.0 Nonspecific elevation of levels of transaminase and lactic acid dehydrogenase [LDH]; E87.6 Hypokalemia; M54.9 Dorsalgia, unspecified; E78.5 Hyperlipidemia, unspecified; E03.9 Hypothyroidism, unspecified; E83.41 Hypermagnesemia; Z68.27 Body mass index [BMI] 27.0-27.9, adult; Z90.710 Acquired absence of both cervix and uterus; Z98.41 Cataract extraction status, right eye; Z87.891 Personal history of nicotine dependence; Z86.73 Personal history of transient ischemic attack (TIA), and cerebral infarction without residual deficits; W18.30XA Fall on same level, unspecified, initial encounter; Y93.89 Activity, other specified; Y99.8 Other external cause status; Y92.009 Unspecified place in unspecified non-institutional (private) residence as the place of occurrence of the external cause
CPT/HCPCS: 36415; 36600; 70450; 71010; 71275; 74000; 76705; 80048; 80053; 80076; 80202; 80305; 81003; 82550; 82553; 82803; 82948; 83036; 83605; 83735; 83874; 83880; 84100; 84439; 84443; 84484; 85025; 85379; 85610; 85730; 87040; 87070; 87081; 87086; 87186; 87205; 89220; 93005; 93970; 94002; 94003; 94640; 96361; 96365; 96375; 99291; C9113; J1630; J1642; J1644; J1815; J1940; J1956; J2001; J2250; J2270; J2405; J2543; J2704; J2920; J2930; J3370; J3475; J3480; J3490; J7030; J7042; J7060; J7613; J7620; J7644; Q0092; Q9967